=== PATIENT | female | born 1940 | race Two or more races ===

== ENCOUNTER 2024-02-06 13:36 | Outpatient (AMB) | payer MEDICARE, MEDICAID, SELFPAY ==
--- NOTE | 2024-02-06 13:42 | PD.RESCLINIC ---
Allergies/Meds Allergies & Medications Allergies No Known Allergies Allergy (Verified 02/06/24 13:43) Medication Reconciliation dexlansoprazole 60 mg capsule,biphase delayed release 60 mg PO DAILY 06/11/22 [History Confirmed 02/06/24] sertraline 100 mg tablet 100 mg PO DAILY 06/11/22 [History Confirmed 02/06/24] rivastigmine 4.6 mg/24 hour transdermal patch 4.6 mg topical QDAY 08/19/23 [History Confirmed 02/06/24] lisinopril 40 mg tablet 40 mg PO QDAY 1 month #30 tabs 09/03/23 [Rx Confirmed 02/06/24] gabapentin 300 mg capsule 300 mg PO BID neuropathy #60 caps 10/31/23 [Rx Confirmed 02/06/24] ibandronate 150 mg tablet 150 mg PO QMONTH osteoporosis #1 tab 10/31/23 [Rx Confirmed 02/06/24] clotrimazole 1 % topical cream 1 applic topical TID PRN rash in groin #45 grams 01/30/24 [Rx Confirmed 02/06/24] guaifenesin 100 mg/5 mL oral liquid 200 mg (10 mL) PO BIDWMEAL #500 mL 01/30/24 [Rx Confirmed 02/06/24] azithromycin 250 mg tablet See Rx Instructions PO .COMPLEX #6 tabs 02/04/24 [Rx Confirmed 02/06/24] alprazolam 0.5 mg tablet 0.5 mg PO TID Anxiety #90 tabs 03/02/24 [Rx] amlodipine 5 mg tablet 5 mg PO QDAY 1 month #30 tabs 03/02/24 [Rx] furosemide 40 mg tablet 40 mg PO DAILY #30 tabs 03/02/24 [Rx] rivaroxaban 10 mg tablet (Xarelto) 10 mg PO DAILY 30 days #30 tabs 03/02/24 [Rx] MA Intake Visit Data Collection New Patient or Established: Established Patient (seen at [facility] within 3 years) Seen by Clinical Staff ONLY (RN/MA): No Pain Present Currently: No Pain scale:: 0 PCP or OBGYN visit in last 3 months: Yes Smoking Status Smoking Status: Former smoker For Televisit only Telemed Video/Phone Visit: Yes Verbal consent obtained for Telemed visit?: Yes Verbal Consent witness name: ROSE Telemed Video/Phone visit w/Clinical Staff: 21-30 min Immunization / Flu Flu Vaccine in the Last 12 Months: No Flu Vaccine Exclusion Criteria: No Exclusion Criteria Past Medical History Past Medical History NEUROLOGIC: Positive Neurological Disorders and Cerebrovascular Accident (10 years ago); Negative Seizures CARDIAC: Positive Hypertension; Negative Cardiac Disorders, Congestive Heart Failure, Edema, Cellulitis or Varicose Veins RESPIRATORY: Negative Chronic Obstructive Pulmonary Disease (COPD), Asthma, Pneumonia, Tuberculosis or Sleep Apnea GASTROINTESTINAL: Positive Gastrointestinal Disorders and Hemorrhoids; Negative Hepatitis GENITOURINARY: Negative Genitourinary Disorders or Renal Disease REPRODUCTIVE: Positive Breast Cancer and Previous Pregnancies MUSCULOSKELETAL: Positive Arthritis ENDOCRINE: Negative Endocrine Disorders, Diabetes Mellitus Type 1, Diabetes Mellitus Type 2, Hyperthyroidism or Hypothyroidism HEMATOLOGIC: Negative Blood Disorders, Anemia or Sickle Cell Disease PSYCHO/SOCIAL: Positive Depression and Anxiety OTHER HISTORY: Positive Hospitalization, Falls, Cancer (left nipple) and Breast Cancer; Negative Shingles, Blood Transfusions, Anesthesia Reactions, Chemotherapy, Radiation Therapy, MRSA, Chicken Pox, Measles or Mumps Family History FAMILY HISTORY: Positive Family Cardiac Disorders; Negative Family Psychiatric Problems, Family Respiratory Disorders, Family Gastrointestinal Problems, Family Cancer, Family Surgery or Family Anesthesia Reaction Surgical History SURGICAL: Positive Lumpectomy, Hysterectomy and Tubal Ligation; Negative Pacemaker Social History SMOKING STATUS: Smoking status: Former smoker ALCOHOL: Alcohol Intake: Never HOUSING: Housing: House LIVES WITH: Lives With: Family Patient Portal [employer] Social History Living Situation History Housing: House Tobacco History Smoking Status: Former smoker Alcohol History Alcohol Intake: Never Review of Systems Report any current symptoms Only answer those that you have currently: Past Medical History Past Medical History Have you ever been diagnosed with any of the following: Neurological Problems Cerebrovascular Accident (CVA): Yes (10 years ago) Seizures: No Cardiology Problems Congestive Heart Failure: No Edema: No Cellulitis: No Hypertension: Yes Varicose Veins: No Respiratory Problems Chronic Obstructive Pulmonary Disease (COPD): No Asthma: No Pneumonia: No Tuberculosis: No Sleep Apnea: No Stomache/Intestinal Problems Hepatitis: No Hemorrhoids: Yes Genital/Urinary Problems Renal Disease: No Reproductive Problems Breast Cancer: Yes Previous Pregnancies: Yes Musculoskeletal Problems Arthritis: Yes Endocrine Problems Diabetes Mellitus Type 1: No Diabetes Mellitus Type 2: No Hyperthyroidism: No Hypothyroidism: No Blood Problems Anemia: No Sickle Cell Disease: No Psychologic Problems Depression: Yes Anxiety: Yes Other Problems Hospitalization: Yes Shingles: No Falls: Yes Blood Transfusions: No Anesthesia Reactions: No Chemotherapy: No Radiation Therapy: No MRSA: No Chicken Pox: No Measles: No Mumps: No Cancer: Yes (left nipple) Surgical History Hysterectomy: Yes Pacemaker: No History of Present Illness HPI Narrative 83 yo female whoduring last visit stated she had a cough for 7 to 10 days. She reported that she was initially having dry cough, but for past couple days has been associated with productive cough,todays phone appointment is to follow up on Xray results. Patient Xray unremarkable, patient referrs improvement in cough, almost resolved. Assessment & Plan Diagnosis / Problem List (1) Cough in adult patient: Status: Acute Assessment & Plan: 83 yo female whoduring last visit stated she had a cough for 7 to 10 days. She reported that she was initially having dry cough, but for past couple days has been associated with productive cough,todays phone appointment is to follow up on Xray results. Patient Xray unremarkable, patient referrs improvement in cough, almost resolved. Additional Assessment Attending note: I, Daniel Hussein MD, attest that I was physically present for the hernandez portions of the service completed via telehealth, and I reviewed and discussed the case with the resident and agree with the resident's plans of care as documented above. Follow-up appointment completed via telehealth to review x-ray results. Chest x-ray unremarkable. Cough nearly resolved. No further treatment indicated at this time. Daniel Hussein MD Advanced Care Planning Advance care planning discussed with:: other Physician Billing Established Patient Established Patient: E/M Level 2-CPT 90375 Office Procedures [facility] Level of Care Nursing/Assessment Patient Status: Established Patient Nursing Assessment/Reassessment: Medication Reconciliation and Update PMH in EMR Coordination of Care: Complex Care and Chronic Disease 1-5, Education Complex Pt/Fam, Consent,records obtained, informed consent, Results/Orders obtained and Staff clarify orders Established Patient Charge Established Patient Point Assignment: 80 Telehealth Telemed Phone/Video with patient at home & ,[place],LOCKSTITCH LINING MAKER: Yes
== END 2024-02-06 14:46 | disposition home or self-care (01) ==
PROVIDERS: PCP Student in an Organized Health Care Education/Training Program; Referring Provider Student in an Organized Health Care Education/Training Program; Supervising Provider Internal Medicine; Visit Provider Student in an Organized Health Care Education/Training Program
DX: R05.9 Cough, unspecified (principal)
CPT/HCPCS: 99212; G0463

== ENCOUNTER 2024-03-19 13:44 | Outpatient (AMB) | payer MEDICARE, MEDICAID, SELFPAY ==
[2024-03-19 13:57] VITALS: BP 158/72; PULSE 80; RESP 18; TEMP 36.2; O2SAT 98
--- NOTE | 2024-03-19 13:57 | ACNOTE_ITS ---
Vital Signs 03/19/24 13:57 Weight Measurement Method Wheelchair BP 158/72 H Blood Pressure Source Automatic Cuff Blood Pressure Location Right Upper Arm Position Sitting Respiration 18 Pulse 80 Pulse Source Monitor Temp 97.2 F Temp Source Temporal Artery Scan Pulse Oximetry (%) 98 Oxygen Delivery Method Room Air Allergies/Meds Allergies & Medications Allergies No Known Allergies Allergy (Verified 03/19/24 13:58) Medication Reconciliation dexlansoprazole 60 mg capsule,biphase delayed release 60 mg PO DAILY 06/11/22 [History Confirmed 03/19/24] sertraline 100 mg tablet 100 mg PO DAILY 06/11/22 [History Confirmed 03/19/24] rivastigmine 4.6 mg/24 hour transdermal patch 4.6 mg topical QDAY 08/19/23 [History Confirmed 03/19/24] lisinopril 40 mg tablet 40 mg PO QDAY 1 month #30 tabs 09/03/23 [Rx Confirmed 03/19/24] gabapentin 300 mg capsule 300 mg PO BID neuropathy #60 caps 10/31/23 [Rx Confir med 03/19/24] ibandronate 150 mg tablet 150 mg PO QMONTH osteoporosis #1 tab 10/31/23 [Rx Confirmed 03/19/24] clotrimazole 1 % topical cream 1 applic topical TID PRN rash in groin #45 grams 01/30/24 [Rx Confirmed 03/19/24] guaifenesin 100 mg/5 mL oral liquid 200 mg (10 mL) PO BIDWMEAL #500 mL 01/30/24 [Rx Confirmed 03/19/24] azithromycin 250 mg tablet See Rx Instructions PO .COMPLEX #6 tabs 02/04/24 [Rx Confirmed 03/19/24] alprazolam 0.5 mg tablet 0.5 mg PO TID Anxiety #90 tabs 03/02/24 [Rx Confirmed 03/19/24] furosemide 40 mg tablet 40 mg PO DAILY #30 tabs 03/02/24 [Rx Confirmed 03/19/24] rivaroxaban 10 mg tablet (Xarelto) 10 mg PO DAILY 30 days #30 tabs 03/02/24 [Rx Confirmed 03/19/24] albuterol sulfate 90 mcg/actuation aerosol inhaler 1 puff inhalation Q8H PRN shortness of breath or wheezing #8.5 grams 03/19/24 [Rx] amlodipine 10 mg tablet 10 mg PO QDAY 30 days #30 tabs 03/19/24 [Rx] MA Intake Visit Data Collection New Patient or Established: Established Patient (seen at [facility] within 3 years) Seen by Clinical Staff ONLY (RN/MIGUELANGEL): No Pain Present Currently: No Pain Scale Used: Mendez-Holguin/Numerical Washer And Capper Machine Operator Required: Yes PCP or OBGYN visit in last 3 months: No Hx Now: No Do You Feel Safe at Home: Yes Authorities Contacted: N/A Smoking Status Smoking Status: Former smoker Immunization / Flu Flu Vaccine in the Last 12 Months: No Flu Vaccine Exclusion Criteria: No Exclusion Criteria Past Medical History Past Medical History NEUROLOGIC: Positive Neurological Disorders and Cerebrovascular Accident (10 years ago); Negative Seizures CARDIAC: Positive Hypertension; Negative Cardiac Disorders, Congestive Heart Failure, Edema, Cellulitis or Varicose Veins RESPIRATORY: Negative Chronic Obstructive Pulmonary Disease (COPD), Asthma, Pneumonia, Tuberculosis or Sleep Apnea GASTROINTESTINAL: Positive Gastrointestinal Disorders and Hemorrhoids; Negative Hepatitis GENITOURINARY: Negative Genitourinary Disorders or Renal Disease REPRODUCTIVE: Positive Breast Cancer and Previous Pregnancies MUSCULOSKELETAL: Positive Arthritis ENDOCRINE: Negative Endocrine Disorders, Diabetes Mellitus Type 1, Diabetes Mellitus Type 2, Hyperthyroidism or Hypothyroidism HEMATOLOGIC: Negative Blood Disorders, Anemia or Sickle Cell Disease PSYCHO/SOCIAL: Positive Depression and Anxiety OTHER HISTORY: Positive Hospitalization, Falls, Cancer (left nipple) and Breast Cancer; Negative Shingles, Blood Transfusions, Anesthesia Reactions, Chemotherapy, Radiation Therapy, MRSA, Chicken Pox, Measles or Mumps Family History FAMILY HISTORY: Positive Family Cardiac Disorders; Negative Family Psychiatric Problems, Family Respiratory Disorders, Family Gastrointestinal Problems, Family Cancer, Family Surgery or Family Anesthesia Reaction Surgical History SURGICAL: Positive Lumpectomy, Hysterectomy and Tubal Ligation; Negative Pacemaker Social History SMOKING STATUS: Smoking status: Former smoker ALCOHOL: Alcohol Intake: Never HOUSING: Housing: House LIVES WITH: Lives With: Family Patient Portal [employer] Social History Living Situation History Housing: House Tobacco History Smoking Status: Former smoker Alcohol History Alcohol Intake: Never Domestic Abuse History Do You Feel Safe at Home: Yes Review of Systems Report any current symptoms Only answer those that you have currently: Past Medical History Past Medical History Have you ever been diagnosed with any of the following: Neurological Problems Cerebrovascular Accident (CVA): Yes (10 years ago) Seizures: No Cardiology Problems Congestive Heart Failure: No Edema: No Cellulitis: No Hypertension: Yes Varicose Veins: No Respiratory Problems Chronic Obstructive Pulmonary Disease (COPD): No Asthma: No Pneumonia: No Tuberculosis: No Sleep Apnea: No Stomache/Intestinal Problems Hepatitis: No Hemorrhoids: Yes Genital/Urinary Problems Renal Disease: No Reproductive Problems Breast Cancer: Yes Previous Pregnancies: Yes Musculoskeletal Problems Arthritis: Yes Endocrine Problems Diabetes Mellitus Type 1: No Diabetes Mellitus Type 2: No Hyperthyroidism: No Hypothyroidism: No Blood Problems Anemia: No Sickle Cell Disease: No Psychologic Problems Depression: Yes Anxiety: Yes Other Problems Hospitalization: Yes Shingles: No Falls: Yes Blood Transfusions: No Anesthesia Reactions: No Chemotherapy: No Radiation Therapy: No MRSA: No Chicken Pox: No Measles: No Mumps: No Cancer: Yes (left nipple) Surgical History Hysterectomy: Yes Pacemaker: No History of Present Illness HPI Narrative Patient is an 83-year-old female with history of left breast DCIS s/p radiation, lumpectomy, aortic stenosis/hypertension who presents to clinic due to concern for new mass in left breast. Also complains of productive cough with clear mucus, SOB but denies any weight loss, fever, chills, chest pain, discharge from breast, nausea/vomiting/diarrhea/abdominal pain or dysuria. Review of Systems Review of Systems Systems Reviewed: All systems reviewed, normal except as documented Objective/Exam Narrative Physical exam: Gen: AAOx3, elderly female in wheelchair HEENT: NCAT, PERRLA, EOMI, MMM, R cervical LN palpable and tender Breast exam: L nipple absent, no erythema, dimpling or discharge noted; small firm mass ~1cm palpated in outer lower quadrant. Hearings Reporter was present for entire breast exam. CVS: normal S1, S2. RRR. Holosystolic murmur in R 2nd ICS with radiation to carotid Resp: CTA B/L. No rhonchi, rales, crackles or wheezing Abd: soft, non-tender, non-distended. BS+ in all 4 quadrants MSK: Good ROM in RUE, BLE; reduced in L shoulder. No rash. Trace edema in R ankle Neuro: CN II-XII grossly intact. Strength 5/5 RUE, BLE; 3/5 LUE due to shoulder pain Assessment & Plan Diagnosis / Problem List (1) Breast lump in lower-outer quadrant: Status: Acute Assessment & Plan: Approximately 1 cm firm mass in lower outer quadrant of left breast Patient with history of DCIS s/p radiation Plan: Will obtain diagnostic left breast mammogram Will refer back to Dr. Underwood at the [facility] (2) Cough in adult patient: Status: Acute Assessment & Plan: Several sick contacts living at home with patient Complains of productive cough of clear mucus and shortness of breath Patient endorses eating and drinking okay Plan: Appears to be viral infection. Offered COVID, flu, RSV testing Ordered CBC, CMP Will order chest x-ray and albuterol inhaler Recommended OTC Mucinex, acetaminophen, and advised to present to ED if patient's symptoms worsen (3) Hypertension: Status: Acute Qualifiers: Hypertension type: primary hypertension Qualified Code(s): I10 - Ess ential (primary) hypertension Assessment & Plan: Patient is on lisinopril 40, amlodipine 5, Lasix 40 and BP in clinic 158/72 Plan: Due to aortic stenosis, goal BP <140/90 Will increase amlodipine 5 to 10 mg. Discussed with patient and family member adverse effect of worsening lower extremity edema Advised to follow up with cardiology if BP is not controlled (4) Aortic stenosis: Status: Acute Qualifiers: Cardiac valve disease etiology: nonrheumatic Qualified Code(s): I35.0 - Nonrheumatic aortic (valve) stenosis Assessment & Plan: Severe aortic valve stenosis with peak gradient 52 mmHg, mean gradient 29 mmHg, V-max 3.6 m/s, as noted on echo from August 2023 Holosystolic murmur with radiation to carotids appreciated Plan: Increase amlodipine for better blood pressure control Recommend for patient follow-up with cardiology Orders: Orders Comprehensive Metabolic Panel 2 Weeks R05.9 - Cough, unspecified CBC Auto Diff Post-Transfusion 2 Weeks R05.9 - Cough, unspecified XR chest 2V 1 Week R05.9 - Cough, unspecified ORQUIDEA CAD diagnostic UNI 1 Week N63.0 - Unspecified lump in unspecified breast, Z85.3 - Personal history of malignant neoplasm of breast Referrals Oncology N63.0 - Unspecified lump in unspecified breast, Z85.3 - Personal history of malignant neoplasm of breast Additional Assessment Attending note: I, Daniel Hussein MD, attest that I was physically present for the hernandez portions of the service and evaluated the patient with the resident and I reviewed and discussed the case with the resident and agree with the resident's findings and plans of care as documented above. Follow-up visit. New mass in left breast. Patient will be sent for diagnostic mammogram with follow-up with cancer treatment center. Complaining of cough. Suspect viral, but due to complaint of dyspnea, we will check a chest x-ray. Baseline labs ordered. Blood pressure elevated. We will increase amlodipine to 10 mg. Watch for worsening edema. See orders. Daniel Hussein MD Advanced Care Planning Advance care planning discussed with:: patient and child Physician Billing Established Patient Established Patient: E/M Level 3-CPT 17645 Office Procedures [facility] Level of Care Nursing/Assessment Patient Status: Established Patient Nursing Assessment/Reassessment: Medication Reconciliation, Update PMH in EMR and Vital Signs Coordination of Care: Complex Care and Chronic Disease 1-5, Consent,records obtained, informed consent, Education Simp Pt/Fam, Lab and Imaging orders and Staff clarify orders Established Patient Charge Established Patient Point Assignment: 100 Established Patient Point Charge: EP Level 3 (80-115)
== END 2024-03-19 14:53 | disposition home or self-care (01) ==
LOC: HODAHC 13:44
PROVIDERS: PCP Student in an Organized Health Care Education/Training Program; Referring Provider Student in an Organized Health Care Education/Training Program; Supervising Provider Internal Medicine; Visit Provider Student in an Organized Health Care Education/Training Program
DX: N63.23 Unspecified lump in the left breast, lower outer quadrant (principal); B34.9 Viral infection, unspecified; Z86.000 Personal history of in-situ neoplasm of breast; Z90.12 Acquired absence of left breast and nipple; Z92.3 Personal history of irradiation; I35.0 Nonrheumatic aortic (valve) stenosis
CPT/HCPCS: 99213; G0463

== ENCOUNTER → 2024-03-20 | Outpatient (CLI) | payer MEDICARE, MEDICAID, SELFPAY ==
--- NOTE | 2024-03-20 14:51 | XR_ITS ---
Examination: AP lateral chest 2 views TECHNIQUE: Upright AP lateral chest 2 views Exam date and time: March 20, 2024 1502 hours INDICATIONS: Congestion beginning 2 days ago. FINDINGS: Subtle opacity in the left upper lobe Mild prominence left ventricle The film is rotated LPO Severe osteopenia Left axillary surgical clips IMPRESSION: Parenchymal disease left upper lobe, consider early pneumonia versus parenchymal scar formation, clinical correlation advised
[2024-03-20 15:46] LABS: Basophils % (Auto) 1 % (0-2.5); Eosinophils # (Auto) 0.2 Thou/mm3 (0.0-0.5); Eosinophils % (Auto) 4 % (0-10); Hematocrit 36.6 % (36.0-46.0); Hemoglobin 11.7 g/dL (12.0-16.0); Immature Granulocytes % (Auto) 0 % (0-0); Immature Granulocytes Auto 0.02 Thou/mm3 (0.00-0.00); Lymphocytes # (Auto) 1.3 Thou/mm3 (1.0-4.8); Lymphocytes % (Auto) 24 % (10-50); Mean Corpuscular Volume 91 fL (80-100); Monocytes # (Auto) 0.4 Thou/mm3 (0.0-0.8); Monocytes % (Auto) 8 % (0-12); Neutrophils # (Auto) 3.4 Thou/mm3 (1.8-7.7); Neutrophils % (Auto) 63 % (37-80); Nucleated Red Blood Cell % 0 /100 WBC (0); Platelet Count 131 Thou/mm3 (140-440); RDW Standard Deviation 47.8 fL (36.4-46.3); Red Blood Count 4.03 Miln/mm3 (4.00-5.20); White Blood Count 5.4 Thou/mm3 (3.6-11.0)
[2024-03-20 16:43] LABS: Alanine Aminotransferase 12 U/L (10-49); Albumin, Serum 4.5 gm/dL (3.4-4.8); Alkaline Phosphatase 102 U/L (46-116); Anion Gap 11 (7-16); Aspartate Amino Transferase 10 U/L (0-34); BUN/Creatinine Ratio 18 Ratio (12-20); Bilirubin,Total 0.8 mg/dL (0.3-1.2); Blood Urea Nitrogen 20 mg/dL (9-23); Calcium 9.5 mg/dL (8.3-10.6); Calcium (Corrected) 9.5 mg/dL (8.5-10.1); Carbon Dioxide 28.6 mMol/L (20.0-31.0); Chloride 103 mMol/L (98-107); Creatinine (Component) 1.1 mg/dL (0.6-1.3); Globulin 2.2 gm/dL (2.3-3.5); Glucose 97 mg/dL (74-106); Osmolality,Calculated 287 (275-295); Potassium 3.2 mMol/L (3.4-5.1); Sodium 143 mMol/L (136-145); Total Protein 6.7 gm/dL (5.7-8.2); eGFR 50 See Note
== END | disposition home or self-care (01) ==
PROVIDERS: PCP Student in an Organized Health Care Education/Training Program; Referring Provider Student in an Organized Health Care Education/Training Program; Visit Provider Student in an Organized Health Care Education/Training Program
DX: R91.8 Other nonspecific abnormal finding of lung field (principal); R05.9 Cough, unspecified
CPT/HCPCS: 36415; 71046; 80053; 85025

== ENCOUNTER 2024-03-26 13:53 | Outpatient (AMB) | payer MEDICARE, MEDICAID, SELFPAY ==
[2024-03-26 13:51] VITALS: BP 152/83; PULSE 70; RESP 18; TEMP 36.2; O2SAT 97
--- NOTE | 2024-03-26 13:51 | PD.RESCLINIC ---
Vital Signs 03/26/24 13:51 Weight Measurement Method Wheelchair BP 152/83 H Blood Pressure Source Automatic Cuff Blood Pressure Location Right Upper Arm Position Sitting Respiration 18 Pulse 70 Pulse Source Monitor Temp 97.2 F Temp Source Oral Pulse Oximetry (%) 97 Oxygen Delivery Method Room Air Allergies/Meds Allergies & Medications Allergies No Known Allergies Allergy (Verified 03/26/24 13:51) Medication Reconciliation dexlansoprazole 60 mg capsule,biphase delayed release 60 mg PO DAILY 06/11/22 [History Confirmed 03/26/24] sertraline 100 mg tablet 100 mg PO DAILY 06/11/22 [History Confirmed 03/26/24] rivastigmine 4.6 mg/24 hour transdermal patch 4.6 mg topical QDAY 08/19/23 [History Confirmed 03/26/24] lisinopril 40 mg tablet 40 mg PO QDAY 1 month #30 tabs 09/03/23 [Rx Confirmed 03/26/24] ibandronate 150 mg tablet 150 mg PO QMONTH osteoporosis #1 tab 10/31/23 [Rx Confirmed 03/26/24] clotrimazole 1 % topical cream 1 applic topical TID PRN rash in groin #45 grams 01/30/24 [Rx Confirmed 03/26/24] guaifenesin 100 mg/5 mL oral liquid 200 mg (10 mL) PO BIDWMEAL #500 mL 01/30/24 [Rx Confirmed 03/26/24] azithromycin 250 mg tablet See Rx Instructions PO .COMPLEX #6 tabs 02/04/24 [Rx Confirmed 03/26/24] furosemide 40 mg tablet 40 mg PO DAILY #30 tabs 03/02/24 [Rx Confirmed 03/26/24] albuterol sulfate 90 mcg/actuation aerosol inhaler 1 puff inhalation Q8H PRN shortness of breath or wheezing #8.5 grams 03/19/24 [Rx Confirmed 03/26/24] amlodipine 10 mg tablet 10 mg PO QDAY 30 days #30 tabs 03/19/24 [Rx Confirmed 03/26/24] alprazolam 0.5 mg tablet 0.5 mg PO TID Anxiety #90 tabs 03/26/24 [Rx] amoxicillin 875 mg-potassium clavulanate 125 mg tablet 1 tab PO Q12H 7 days #14 tabs 03/26/24 [Rx] gabapentin 300 mg capsule 300 mg PO BID neuropathy #60 caps 03/26/24 [Rx] guaifenesin 100 mg/5 mL oral liquid 200 mg (10 mL) PO Q6H PRN productive cough 7 days #1,000 mL 03/26/24 [Rx] rivaroxaban 10 mg tablet (Xarelto) 10 mg PO DAILY 30 days #30 tabs 03/26/24 [Rx] MIGUELANGEL Intake Visit Data Collection New Patient or Established: Established Patient (seen at [facility] within 3 years) Seen by Clinical Staff ONLY (RN/MA): No Pain Present Currently: No Pain Scale Used: Mendez-Holguin/Numerical Dry Charge Process Attendant Required: No PCP or OBGYN visit in last 3 months: Yes Hx Now: No Do You Feel Safe at Home: Yes Authorities Contacted: N/A Smoking Status Smoking Status: Former smoker Immunization / Flu Flu Vaccine in the Last 12 Months: No Flu Vaccine Exclusion Criteria: No Exclusion Criteria Past Medical History Past Medical History NEUROLOGIC: Positive Neurological Disorders and Cerebrovascular Accident (10 years ago); Negative Seizures CARDIAC: Positive Hypertension; Negative Cardiac Disorders, Congestive Heart Failure, Edema, Cellulitis or Varicose Veins RESPIRATORY: Negative Chronic Obstructive Pulmonary Disease (COPD), Asthma, Pneumonia, Tuberculosis or Sleep Apnea GASTROINTESTINAL: Positive Gastrointestinal Disorders and Hemorrhoids; Negative Hepatitis GENITOURINARY: Negative Genitourinary Disorders or Renal Disease REPRODUCTIVE: Positive Breast Cancer and Previous Pregnancies MUSCULOSKELETAL: Positive Arthritis ENDOCRINE: Negative Endocrine Disorders, Diabetes Mellitus Type 1, Diabetes Mellitus Type 2, Hyperthyroidism or Hypothyroidism HEMATOLOGIC: Negative Blood Disorders, Anemia or Sickle Cell Disease PSYCHO/SOCIAL: Positive Depression and Anxiety OTHER HISTORY: Positive Hospitalization, Falls, Cancer (left nipple) and Breast Cancer; Negative Shingles, Blood Transfusions, Anesthesia Reactions, Chemotherapy, Radiation Therapy, MRSA, Chicken Pox, Measles or Mumps Family History FAMILY HISTORY: Positive Family Cardiac Disorders; Negative Family Psychiatric Problems, Family Respiratory Disorders, Family Gastrointestinal Problems, Family Cancer, Family Surgery or Family Anesthesia Reaction Surgical History SURGICAL: Positive Lumpectomy, Hysterectomy and Tubal Ligation; Negative Pacemaker Social History SMOKING STATUS: Smoking status: Former smoker ALCOHOL: Alcohol Intake: Never HOUSING: Housing: House LIVES WITH: Lives With: Family Patient [facility] Social History Living Situation History Housing: House Tobacco History Smoking Status: Former smoker Alcohol History Alcohol Intake: Never Domestic Abuse History Do You Feel Safe at Home: Yes Review of Systems Report any current symptoms Only answer those that you have currently: Past Medical History Past Medical History Have you ever been diagnosed with any of the following: Neurological Problems Cerebrovascular Accident (CVA): Yes (10 years ago) Seizures: No Cardiology Problems Congestive Heart Failure: No Edema: No Cellulitis: No Hypertension: Yes Varicose Veins: No Respiratory Problems Chronic Obstructive Pulmonary Disease (COPD): No Asthma: No Pneumonia: No Tuberculosis: No Sleep Apnea: No Stomache/Intestinal Problems Hepatitis: No Hemorrhoids: Yes Genital/Urinary Problems Renal Disease: No Reproductive Problems Breast Cancer: Yes Previous Pregnancies: Yes Musculoskeletal Problems Arthritis: Yes Endocrine Problems Diabetes Mellitus Type 1: No Diabetes Mellitus Type 2: No Hyperthyroidism: No Hypothyroidism: No Blood Problems Anemia: No Sickle Cell Disease: No Psychologic Problems Depression: Yes Anxiety: Yes Other Problems Hospitalization: Yes Shingles: No Falls: Yes Blood Transfusions: No Anesthesia Reactions: No Chemotherapy: No Radiation Therapy: No MRSA: No Chicken Pox: No Measles: No Mumps: No Cancer: Yes (left nipple) Surgical History Hysterectomy: Yes Pacemaker: No History of Present Illness HPI Narrative 83 yo female who was seen 1 weeks ago due to cough and nasal congestion. Per antione hackett all family was sick with cough and congestion, family recovered, however she still has productive cough and weakness, chest x ray done last week shows early pnuemonia, we will prescribe 1 week antibiotic Augmentin. Mamogram ordered due to new lump found on breast scheduled for Apr 20 we will see patient on may 03 with results. Objective/Exam Narrative Physical exam: GENERAL: Awake, alert and oriented. No acute distress. Coughing HEENT: Normocephalic, atraumatic and nontender.? NECK: Supple without adenopathy. No JVD.? CHEST: Heart rate and rythm normal, no murmurs, gallops auscultated. S1 & 2 normal insensity. LUNGS: Right sided faint wheezing, left lung sounds clear.? No intercostal subcostal retraction. Room air ABDOMEN: Soft,symmetric , nontender, no guarding or rebound tenderness. No abnormal masses palpated.? No pulsatile masses or bruits.? Bowel sounds are normoactive in all 4 quadrants. EXTREMITIES: Nontender.? No pitting edema.? No cyanosis.? Patient is able to move all 4 extremities. SKIN: No rashes noted. NEURO:? Cranial nerves intact.? There is no focalization.? GCS is 15. Assessment & Plan Diagnosis / Problem List (1) Community acquired bacterial pneumonia: Status: Acute Assessment & Plan: 83 yo female who was seen 1 weeks ago due to cough and nasal congestion. Per antione hackett all family was sick with cough and congestion, family recovered, however she still has productive cough and weakness, chest x ray done last week shows early pnuemonia, we will prescribe 1 week antibiotic Augmentin. Mamogram ordered due to new lump found on breast scheduled for Apr 20 we will see patient on may 03 with results. Patient's care discussed with attending physician, Dr Keenan Capellan MD PGY3 Plan: augmentn 1 week Advanced Care Planning Advance care planning discussed with:: patient Office Procedures [facility] Level of Care Nursing/Assessment Patient Status: Established Patient Nursing Assessment/Reassessment: Medication Reconciliation, Update PMH in EMR and Vital Signs Coordination of Care: Complex Care and Chronic Disease 1-5, Consent,records obtained, informed consent, Education Simp Pt/Fam, Results/Orders obtained and Staff clarify orders Established Patient Charge Established Patient Point Assignment: 90 Established Patient Point Charge: EP Level 3 (80-115)
== END 2024-03-26 14:19 | disposition home or self-care (01) ==
LOC: HODAHC 13:53
PROVIDERS: PCP Student in an Organized Health Care Education/Training Program; Referring Provider Student in an Organized Health Care Education/Training Program; Supervising Provider Internal Medicine; Visit Provider Student in an Organized Health Care Education/Training Program
DX: J18.9 Pneumonia, unspecified organism (principal)
CPT/HCPCS: 99213; G0463

== ENCOUNTER 2024-04-11 13:59 | Emergency (ER) | payer MEDICARE, MEDICAID, SELFPAY ==
[2024-04-11 14:00] VITALS: BMI 31.2
[2024-04-11 14:59] VITALS: BP 153/75; PULSE 80; RESP 18; TEMP 36.8; O2SAT 95
--- NOTE | 2024-04-11 15:05 | EDNOTE_ITS ---
ED General RME/HPI General Chief complaint: General Adult/Misc Complain Stated complaint: NEEDS PRESCRIPTION FOR XANAX Time Seen by Provider: 04/11/24 14:34 Source: patient and family Arrival date/time: 04/11/24 13:59 This is an 83-year-old female who presents to the emergency department accompanied with son patient reports she normally takes a Xanax medication however ran out. Patient requesting a refill on medication. She does report she has a follow-up appointment with her PCP on Saturday and will receive her refill medications on that day. However reports she will not have any medications for the remainder of the weekend. Denies any other concerns Mode of arrival: wheelchair Related Data Home Medications ?Medication ?Instructions ?Recorded ?Confirmed sertraline 100 mg tablet 100 mg PO DAILY 06/11/2212/10 rivastigmine 4.6 mg/24 hour 4.6 mg topical QDAY 03/26/24 transdermal patch Previous Rx's ?Medication ?Instructions ?Recorded lisinopril 40 mg tablet 40 mg PO QDAY 1 month #30 ta bs 09/03/23 ibandronate 150 mg tablet 150 mg PO QMONTH osteoporosi s #1 10/31/23 tab clotrimazole 1 % topical cream 1 applic topical TID NJ N rash in 01/30/24 groin #45 grams guaifenesin 100 mg/5 mL oral liquid 200 mg (10 mL) PO BIDWMEAL #500 mL 01/30/24 azithromycin 250 mg tablet See Rx Instructions PO .COM PLEX #6 02/04/24 tabs furosemide 40 mg tablet 40 mg PO DAILY #30 tabs 02/15 09/08 albuterol sulfate 90 mcg/actuation 1 puff inhalation Q 8H PRN 03/19/24 aerosol inhaler shortness of breath or wheez ing #8.5 grams amlodipine 10 mg tablet 10 mg PO QDAY 30 days #30 ta bs 03/19/24 gabapentin 300 mg capsule 300 mg PO BID neuropathy #60 caps 03/26/24 clonazepam 0.5 mg tablet 0.5 mg PO QDAY PRN anxiety # 4 tabs 04/11/24 alprazolam 0.5 mg tablet 0.5 mg PO TID Anxiety #90 ta bs 04/13/24 dexlansoprazole 60 mg 60 mg PO DAILY 30 days #30 c aps 04/13/24 capsule,biphase delayed release rivaroxaban 10 mg tablet (Xarelto) 10 mg PO DAILY 30 d ays #30 tabs 04/13/24 Allergies Allergy/AdvReac Type Severity Reaction Status Date / Time No Known Allergies Allergy Verified 04/11/24 14:01 Review of Systems Review of Systems Systems Reviewed: All systems reviewed, normal except as documented Narrative Review of Systems: Gen: No fever, no chills, no weight loss EYES: No discharge, no visual changes, no pain HEENT: No ear pain, no congestion, no sore throat PULM: No shortness of breath, no cough, no congestion CV: No chest pain, no dyspnea on exertion, no palpitations GI: No nausea, no vomiting, no diarrhea, no pain, no constipation : No frequency, no urgency,? no dysuria Musc/skel: No joint pain, no back pain Skin: No rash? ED Exam Narrative Physical exam: General: Sittiing in Exam table in no acute distress, answering questions appropriately HENT: normocephalic, atraumatic, EOMI, PERRLA, moist mucous membranes Chest: chest wall is nontender Cardiac: regular rate and rhythm, normal S1 and S2, no murmurs, rubs, or g allops, capillary refill ?2 seconds Pulmonary: clear to auscultation bilaterally, no wheezing, crackles, or rhonchi Abdominal: active bowel sounds, soft, nontender, nondistended Neuro: A&OX3, CN II-XII intact, sensation grossly intact bilaterally in UE and LE. Skin: no rashes, no ecchymosis Ext: no lower extremity edema Course Quality Measures none Vital Signs Vital signs: Vital Signs Temperature 98.3 F 04/11/24 14:59 Pulse Rate 80 04/11/24 14:59 Respiratory Rate 18 04/11/24 14:59 Blood Pressure 153/75 H 04/11/24 14:59 Pulse Oximetry (%) 95 04/11/24 14:59 Oxygen Delivery Method Room Air 04/11/24 14:59 [facility] Patient data External records reviewed:: [facility] previous records Clinical information provided by:: patient Social determinants that could affect healthcare access:: none Patient has the following chronic illnesses:: none How is presenting disease/condition affected by chronic disease/condition?: no chronic disease Evaluation data The following diagnostics were reviewed and interpreted by me:: other (specify) Lab and/or radiology exams considered but not ordered:: none Interpretation Summary: none Medications Medications considered but not ordered:: none Medication administrations:: none Consultations Consultation(s) initiated? (list below): No Diagnosis Differential Diagnosis ED Complaint MDM: Anxiety Most likely diagnosis given after review of the tests above:: Prescription Refill Admission Indicated Admission indicated?: not indicated Explain why admission is indicated or not indicated:: none -patient can follow-up with her PCP. Only 4 tabs of medication was prescribed. Patient is to follow-up with her PCP for refills courtesy refill was done today. Admission Request Was there a request for admission?: No Disposition Plan Disposition Plan: Discharge Discharge Attestation Discharge Attestation: The patient and all family members were given an opportunity to ask questions and understood the discharge instructions. Discharge instructions specifically effects, indications for sooner follow up or return to the emergency department, and the expected course of current diagnosis. Patient condition: Stable Medical Decision Making Differential Diagnosis Differential Diagnosis: Anxiety Discharge Plan Plan Patient Disposition: HOME (Self Care) Prescriptions/Referrals Prescriptions/Med Rec: New clonazepam 0.5 mg tablet 0.5 mg PO QDAY PRN (Reason: anxiety) Qty: 4 0RF No Action lisinopril 40 mg tablet 40 mg PO QDAY 30 Days Qty: 30 3RF guaifenesin 100 mg/5 mL liquid 200 mg PO BIDWMEAL Qty: 500 0RF clotrimazole 1 % cream 1 applic topical TID PRN (Reason: rash in groin) Qty: 45 5RF azithromycin 250 mg tablet See Rx Instructions PO .COMPLEX Qty: 6 0RF Rx Instructions: For 250 mg dose pack: take 500 mg today (day 1), then 250 mg for 4 days (days 2-5) PO amlodipine 10 mg tablet 10 mg PO QDAY 30 Days Qty: 30 3RF albuterol sulfate 90 mcg/actuation HFA aerosol inhaler 1 puff inhalation Q8H PRN (Reason: shortness of breath or wheezing) Qty: 8.5 0RF ibandronate 150 mg tablet 150 mg PO QMONTH Qty: 1 5RF gabapentin 300 mg capsule 300 mg PO BID MDD 600 mg Qty: 60 2RF furosemide 40 mg tablet 40 mg PO DAILY Qty: 30 0RF Xarelto 10 mg tablet 10 mg PO DAILY 30 Days Qty: 30 3RF dexlansoprazole 60 mg capsule,biphase delayed releas 60 mg PO DAILY 30 Days Qty: 30 3RF alprazolam 0.5 mg tablet 0.5 mg PO TID MDD 1.5 mg Qty: 90 0RF rivastigmine 4.6 mg/24 hour patch 24 hour 4.6 mg TOPICAL QDAY sertraline 100 mg tablet 100 mg PO DAILY Patient Comments: take 1 tablet by mouth once daily Problem List Clinical Impression: Anxiety, Prescription refill Patient/Caregiver Discharge Instructions Discharge Activity: activity as tolerated Education Materials: Anxiety Disorders Tx Therapy Additional Instructions: It is very important that you do not run out of your medication. I did send you only 4 tablets that is enough until you see your doctor on Saturday. Return to the emergency department is any worsening symptoms change in condition. Print Language: Beninese Stand Alone Forms: Reema Award Info., Patient Portal Info Letter MARIAM/MIRIAM Supervising Physician MARIAM/MIRIAM Supervising Physician: va
== END 2024-04-11 15:17 | disposition home or self-care (01) ==
LOC: SERX 15:27
PROVIDERS: Emergency Provider Emergency Medicine
DX: Z76.0 Encounter for issue of repeat prescription (principal); F41.9 Anxiety disorder, unspecified; Z79.899 Other long term (current) drug therapy
CPT/HCPCS: 99281

== ENCOUNTER → 2024-04-20 | Outpatient (CLI) | payer MEDICARE, MEDICAID, SELFPAY ==
--- NOTE | 2024-04-20 | XR_ITS ---
Examination: Diagnostic digital mammography, bilateral Computer aided detection 3-D breast Tomosynthesis, bilateral Date and time of exam: April 20, 2024 1510 hours INDICATIONS: Palpable lump left breast note is beginning one month ago Technique: Nonmagnified MLO, CC views of the breasts to been obtained, reconstructed from 3-D Tomosynthesis images. R2 computer aided detection program utilized for evaluation of suspicious masses and/or abnormal calcifications. 3-D Tomosynthesis images obtained. Findings: Comparison to mammograms dating to March 27, 2017 Scattered areas of fibroglandular density. Benign calcifications Limited study as the patient is in a wheelchair No suspicious masses IMPRESSION: BI-RADS Category 0: Incomplete: Need additional imaging evaluation Limited study as the patient is in a wheelchair Recommend bilateral breast sonography follow-up
== END | disposition home or self-care (01) ==
PROVIDERS: Referring Provider Student in an Organized Health Care Education/Training Program; Visit Provider Student in an Organized Health Care Education/Training Program
DX: R92.8 Other abnormal and inconclusive findings on diagnostic imaging of breast (principal); C50.912 Malignant neoplasm of unspecified site of left female breast
CPT/HCPCS: 77062; 77066; G0279

== ENCOUNTER 2024-04-28 11:01 | Outpatient (RCR) | payer MEDICARE, MEDICAID, SELFPAY ==
--- NOTE | 2024-04-28 12:10 | CTCCONSULT_ITS ---
[facility] [address] [place], [place] [address] Consultation Note Date: 04/28/2024 MR#: [id number] Name: NETO DENTON : 1940 Dx: C50.112 Malignant neoplasm of central portion of left female breast Attending physician Edmund Davila MD [facility] Reason for consultation. Patient with history of stage II aT2a left breast CA status post partial mastectomy postop radiation hormone manipulation, referred because of a palpable lump. History of Present Illness: Patient is a 84-year-old lady who was initially seen over 4 years ago when she had stage II aT2 N0 left breast CA. 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 Radiation therapy was prescribed completed March 2020. Patient was prescribed postop estrogen modulators by Dr. Prashant Dang but appears to not be on it for the time being. Patient had a palpable mass in the lower outer quadrant of left breast on 04/20/2024 and it was BI-RADS 0 and sonogram was recommended. Patient now referred to the cancer treatment center. 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 None to meds Social History: Wheelchair-bound secondary CVA being cared for by family. Denies smoking drinking has experienced depression Review of Systems patient currently: Physical Exam: Well-appearing lady in wheelchair General: HEENT: Atraumatic no cephalic extraocular is intact no oral lesion no cervical or supraclavicular adenopathy CV: Left breast with palpable mass in the lower outer quadrant approximately 4:00. No other suspicious masses felt in either breasts. ABD: Soft no organomegaly or tenderness EXT: No signs of clubbing or edema Assessment:1. History of stage II aT2 N0 left breast CA status post partial mastectomy postop radiation postop estrogen modulators. 2. Possible recurrence lower outer quadrant left breast, will check sonogram in addition to the just completed mammogram. 3. I gave patient follow-up for 2 months. Cc: Edmund Davila MD [facility] Electronically signed by: Chiki Underwood MD, DABR 04/28/2024 12:07 PM
== END 2024-05-15 23:59 | disposition home or self-care (01) ==
LOC: SCTC 11:01
PROVIDERS: PCP Student in an Organized Health Care Education/Training Program; Referring Provider Student in an Organized Health Care Education/Training Program; Visit Provider Radiology Therapeutic Radiology
DX: N63.23 Unspecified lump in the left breast, lower outer quadrant (principal); Z85.3 Personal history of malignant neoplasm of breast; Z90.12 Acquired absence of left breast and nipple; Z92.3 Personal history of irradiation
CPT/HCPCS: 99213; G0463

== ENCOUNTER 2024-04-30 13:37 | Outpatient (AMB) | payer MEDICARE, MEDICAID, SELFPAY ==
[2024-04-30 13:46] VITALS: BP 134/72; PULSE 64; RESP 17; TEMP 36; O2SAT 96
--- NOTE | 2024-04-30 13:46 | ACNOTE_ITS ---
Vital Signs 04/30/24 13:46 Height 1.52 m Height Method Stated Weight Measurement Method Standing Scale BP 134/72 H Blood Pressure Source Automatic Cuff Blood Pressure Location Left Upper Arm Position Sitting Respiration 17 Pulse 64 Pulse Source Monitor Temp 96.8 F Temp Source Temporal Artery Scan Pulse Oximetry (%) 96 Oxygen Delivery Method Room Air Allergies/Meds Allergies & Medications Allergies No Known Allergies Allergy (Verified 04/30/24 13:50) Medication Reconciliation sertraline 100 mg tablet 100 mg PO DAILY 06/11/22 [History Confirmed 04/30/24] rivastigmine 4.6 mg/24 hour transdermal patch 4.6 mg topical QDAY 08/19/23 [History Confirmed 04/30/24] lisinopril 40 mg tablet 40 mg PO QDAY 1 month #30 tabs 09/03/23 [Rx Confirmed 04/30/24] ibandronate 150 mg tablet 150 mg PO QMONTH osteoporosis #1 tab 10/31/23 [Rx Confirmed 04/30/24] clotrimazole 1 % topical cream 1 applic topical TID PRN rash in groin #45 grams 01/30/24 [Rx Confirmed 04/30/24] guaifenesin 100 mg/5 mL oral liquid 200 mg (10 mL) PO BIDWMEAL #500 mL 01/30/24 [Rx Confirmed 04/30/24] azithromycin 250 mg tablet See Rx Instructions PO .COMPLEX #6 tabs 02/04/24 [Rx Confirmed 04/30/24] albuterol sulfate 90 mcg/actuation aerosol inhaler 1 puff inhalation Q8H PRN sh ortness of breath or wheezing #8.5 grams 03/19/24 [Rx Confirmed 04/30/24] amlodipine 10 mg tablet 10 mg PO QDAY 30 days #30 tabs 03/19/24 [Rx Confirmed 04/30/24] gabapentin 300 mg capsule 300 mg PO BID neuropathy #60 caps 03/26/24 [Rx Confirmed 04/30/24] clonazepam 0.5 mg tablet 0.5 mg PO QDAY PRN anxiety #4 tabs 04/11/24 [Rx Confirmed 04/30/24] alprazolam 0.5 mg tablet 0.5 mg PO TID Anxiety #90 tabs 04/30/24 [Rx] cetirizine 10 mg tablet (Zyrtec) 10 mg PO QDAY PRN allergy symptoms #30 tabs 04/30/24 [Rx] dexlansoprazole 60 mg capsule,biphase delayed release 60 mg PO DAILY 30 days #30 caps 04/30/24 [Rx] furosemide 40 mg tablet 40 mg PO DAILY #30 tabs 04/30/24 [Rx] lidocaine 5 % topical cream 1 applic topical TID PRN pain #15 grams 04/30/24 [Rx] rivaroxaban 10 mg tablet (Xarelto) 10 mg PO DAILY 30 days #30 tabs 04/30/24 [Rx] MA Intake Visit Data Collection New Patient or Established: Established Patient (seen at [facility] within 3 years) Seen by Clinical Staff ONLY (RN/MA): No Pain Present Currently: No Pain scale:: 0 Pain Scale Used: Mendez-Holguin/Numerical Commercial Banker Required: No PCP or OBGYN visit in last 3 months: Yes Hx Now: No Do You Feel Safe at Home: Yes Authorities Contacted: N/A Smoking Status Smoking Status: Never smoker Immunization / Flu Flu Vaccine in the Last 12 Months: No Flu Vaccine Exclusion Criteria: No Exclusion Criteria Past Medical History Past Medical History NEUROLOGIC: Positive Neurological Disorders and Cerebrovascular Accident (10 years ago); Negative Seizures CARDIAC: Positive Hypertension; Negative Cardiac Disorders, Congestive Heart Failure, Edema, Cellulitis or Varicose Veins RESPIRATORY: Negative Chronic Obstructive Pulmonary Disease (COPD), Asthma, Pneumonia, Tuberculosis or Sleep Apnea GASTROINTESTINAL: Positive Gastrointestinal Disorders and Hemorrhoids; Negative Hepatitis GENITOURINARY: Negative Genitourinary Disorders or Renal Disease REPRODUCTIVE: Positive Breast Cancer and Previous Pregnancies MUSCULOSKELETAL: Positive Arthritis ENDOCRINE: Negative Endocrine Disorders, Diabetes Mellitus Type 1, Diabetes Mellitus Type 2, Hyperthyroidism or Hypothyroidism HEMATOLOGIC: Negative Blood Disorders, Anemia or Sickle Cell Disease PSYCHO/SOCIAL: Positive Depression and Anxiety OTHER HISTORY: Positive Hospitalization, Falls, Cancer (left nipple) and Breast Cancer; Negative Shingles, Blood Transfusions, Anesthesia Reactions, Chemotherapy, Radiation Therapy, MRSA, Chicken Pox, Measles or Mumps Family History FAMILY HISTORY: Positive Family Cardiac Disorders; Negative Family Psychiatric Problems, Family Respiratory Disorders, Family Gastrointestinal Problems, Family Cancer, Family Surgery or Family Anesthesia Reaction Surgical History SURGICAL: Positive Lumpectomy, Hysterectomy and Tubal Ligation; Negative Pacemaker Social History SMOKING STATUS: Smoking status: Never smoker ALCOHOL: Alcohol Intake: Never HOUSING: Housing: House LIVES WITH: Lives With: Family Patient Portal Questionaires Social History Living Situation History Housing: House Tobacco History Smoking Status: Never smoker Alcohol History Alcohol Intake: Never Domestic Abuse History Do You Feel Safe at Home: Yes Review of Systems Report any current symptoms Only answer those that you have currently: Past Medical History Past Medical History Have you ever been diagnosed with any of the following: Neurological Problems Cerebrovascular Accident (CVA): Yes (10 years ago) Seizures: No Cardiology Problems Congestive Heart Failure: No Edema: No Cellulitis: No Hypertension: Yes Varicose Veins: No Respiratory Problems Chronic Obstructive Pulmonary Disease (COPD): No Asthma: No Pneumonia: No Tuberculosis: No Sleep Apnea: No Stomache/Intestinal Problems Hepatitis: No Hemorrhoids: Yes Genital/Urinary Problems Renal Disease: No Reproductive Problems Breast Cancer: Yes Previous Pregnancies: Yes Musculoskeletal Problems Arthritis: Yes Endocrine Problems Diabetes Mellitus Type 1: No Diabetes Mellitus Type 2: No Hyperthyroidism: No Hypothyroidism: No Blood Problems Anemia: No Sickle Cell Disease: No Psychologic Problems Depression: Yes Anxiety: Yes Other Problems Hospitalization: Yes Shingles: No Falls: Yes Blood Transfusions: No Anesthesia Reactions: No Chemotherapy: No Radiation Therapy: No MRSA: No Chicken Pox: No Measles: No Mumps: No Cancer: Yes (left nipple) Surgical History Hysterectomy: Yes Pacemaker: No History of Present Illness HPI Narrative Patient is a 84 years old female was brought by her granddaughter for follow up. She reports ongoing chronic cough which got slightly worse recently. She report no sick contacts or recent travel. She denies any fever, chills, chest pain, SOB, or generally feeling sick. Her cough is the same in nature as before. She also reported wattering of both eyes with occasional minimal swelling. She denies any pus, pain or worsening vision. She had consultation with Dr. Underwood for breast cancer and was scheduled for breast US. She requested refil of her Xarelto, Xanax, dexlansoprozole and Lasix. Review of Systems Review of Systems Systems Reviewed: All systems reviewed, normal except as documented Objective/Exam Narrative Physical exam: Gen: Well-developed and well-nourished elderly female. HEENT: NCAT, PERRLA, EOMI, MMM, anicteric conjunctivae. CVS: normal S1 and S2. Systolic murmur over mitral area. No M/R/G. Resp: CTA B/L. No rhonchi, rales, crackles or wheezing. Abd: soft, non-tender, non-distended. BS+ in all 4 quadrants. MSK: Good ROM in BUE & BLE. No edema or rash. Neuro: CN II-XII grossly intact. Strength 5/5 in BUE & BLE. Alert and oriented x3. Psych: appropriate mood and affect. Assessment & Plan Diagnosis / Problem List (1) Cough in adult patient: Status: Acute Assessment & Plan: Patient was recently treated with Augmentin for CAP, her symptoms significantly improved, however her cough has failed to improve, today she reported cough got slightly worse and also reported irritation of her eyes, likely allergic origin. Lungs are clear on physical exam. No hx of fever, chills, SOB, chest pain. Plan: Trial of Cetirizine 1 tab daily. Continue PPI. (2) Irritation of eye: Status: Acute Assessment & Plan: Recently srated having excessive wattering of her eyes with occasional minimal swelling. Plan: Trial of Cetirizine 1 tab daily. (3) Hypertension: Status: Acute Qualifiers: Hypertension type: primary hypertension Qualified Code(s): I10 - Essential (primary) hypertension Plan: Refilled Lasix. (4) Peripheral neuropathy: Status: Acute Assessment & Plan: Patient reported worsening of pain in right heel, asked for any topical treatment. Plan: Lidocaine cream TID PRN. Continue gabapentin. (5) Anxiety: Status: Acute Plan: Xanax refilled. Additional Assessment Internal Medicine Attending Note: Case discussed with and agree with note and management plan of Resident Physician as per Resident's Note above. Issues of concern for present visit are as follows: Follow-up visit. Noting chronic cough. Previously treated with Augmentin for community-acquired pneumonia with improvement of all symptoms except for cough. Noting some watering of eyes. Suspect may have postnasal drip as cause of cough. We will do a trial of antihistamine. Patient is on a PPI. Other needed refills provided today. Daniel Hussein MD Advanced Care Planning Advance care planning discussed with:: patient and sibling Physician Billing Established Patient Established Patient: E/M Level 3-CPT 24394 Office Procedures [facility] Level of Care Nursing/Assessment Patient Status: Established Patient Nursing Assessment/Reassessment: Medication Reconciliation, Update PMH in EMR and Vital Signs Coordination of Care: Complex Care and Chronic Disease 1-5, Consent,records obtained, informed consent, Education Simp Pt/Fam and Staff clarify orders Established Patient Charge Established Patient Point Assignment: 85 Established Patient Point Charge: EP Level 3 (80-115)
== END 2024-04-30 14:52 | disposition home or self-care (01) ==
PROVIDERS: PCP Student in an Organized Health Care Education/Training Program; Referring Provider Student in an Organized Health Care Education/Training Program; Supervising Provider Internal Medicine; Visit Provider Student in an Organized Health Care Education/Training Program
DX: R05.3 Chronic cough (principal); I10 Essential (primary) hypertension; G62.9 Polyneuropathy, unspecified; F41.9 Anxiety disorder, unspecified; H57.89 Other specified disorders of eye and adnexa
CPT/HCPCS: 99213; G0463

== ENCOUNTER → 2024-05-19 | Outpatient (CLI) | payer MEDICARE, MEDICAID, SELFPAY ==
--- NOTE | 2024-05-19 13:00 | XR_ITS ---
Examination: Breast ultrasound complete, bilateral Date and time of exam: May 19, 2024 1431 hours INDICATIONS: Palpable lump left breast beginning 3 weeks ago, history left breast cancer with mastectomy November 17, 2019 Technique: Real-time grayscale ultrasonographic imaging bilateral breasts, including all 4 quadrants as well as nipple retroareolar and axillary regions. Findings: Sonographic images right breast No cystic or solid masses Probably benign right axillary lymph nodes Sonographic images left breast Retroareolar oval mass indistinct margins 11 x 5 x 9 mm IMPRESSION: BI-RADS Category 4: Suspicious for malignancy Suspicious mass retroareolar region left breast, biopsy is needed to exclude breast carcinoma, this mass is amenable to ultrasound-guided breast biopsy for diagnosis
== END | disposition home or self-care (01) ==
LOC: CDIM 13:34
PROVIDERS: PCP Student in an Organized Health Care Education/Training Program; Referring Provider Radiology Therapeutic Radiology; Visit Provider Radiology Therapeutic Radiology
DX: N63.42 Unspecified lump in left breast, subareolar (principal); C50.112 Malignant neoplasm of central portion of left female breast
CPT/HCPCS: 76641

== ENCOUNTER 2024-05-25 14:52 | Outpatient (AMB) | payer MEDICARE, MEDICAID, SELFPAY ==
[2024-05-25 14:55] VITALS: BP 106/74; PULSE 64; RESP 18; TEMP 36.3; O2SAT 95
--- NOTE | 2024-05-25 14:55 | ACNOTE_ITS ---
Vital Signs 05/25/24 14:55 Height 1.52 m Height Method Stated Weight Measurement Method Wheelchair BP 106/74 Blood Pressure Source Automatic Cuff Blood Pressure Location Right Upper Arm Position Sitting Respiration 18 Pulse 64 Pulse Source Monitor Temp 97.3 F Temp Source Temporal Artery Scan Pulse Oximetry (%) 95 Oxygen Delivery Method Room Air Allergies/Meds Allergies & Medications Allergies No Known Allergies Allergy (Verified 05/25/24 14:56) Medication Reconciliation sertraline 100 mg tablet 100 mg PO DAILY 06/11/22 [History Confirmed 05/25/24] rivastigmine 4.6 mg/24 hour transdermal patch 4.6 mg topical QDAY 08/19/23 [History Confirmed 05/25/24] lisinopril 40 mg tablet 40 mg PO QDAY 1 month #30 tabs 09/03/23 [Rx Confirmed 05/25/24] ibandronate 150 mg tablet 150 mg PO QMONTH osteoporosis #1 tab 10/31/23 [Rx Confirmed 05/25/24] guaifenesin 100 mg/5 mL oral liquid 200 mg (10 mL) PO BIDWMEAL #500 mL 01/30/24 [Rx Confirmed 05/25/24] azithromycin 250 mg tablet See Rx Instructions PO .COMPLEX #6 tabs 02/04/24 [Rx Confirmed 05/25/24] albuterol sulfate 90 mcg/actuation aerosol inhaler 1 puff inhalation Q8H PRN shortness of breath or wheezing #8.5 grams 03/19/24 [Rx Confirmed 05/25/24] amlodipine 10 mg tablet 10 mg PO QDAY 30 days #30 tabs 03/19/24 [Rx Confirmed 05/25/24] gabapentin 300 mg capsule 300 mg PO BID neuropathy #60 caps 03/26/24 [Rx Confirmed 05/25/24] clonazepam 0.5 mg tablet 0.5 mg PO QDAY PRN anxiety #4 tabs 04/11/24 [Rx Confirmed 05/25/24] alprazolam 0.5 mg tablet 0.5 mg PO TID Anxiety #90 tabs 04/30/24 [Rx Confirmed 05/25/24] cetirizine 10 mg tablet (Zyrtec) 10 mg PO QDAY PRN allergy symptoms #30 tabs 04/30/24 [Rx Confirmed 05/25/24] dexlansoprazole 60 mg capsule,biphase delayed release 60 mg PO DAILY 30 days #30 caps 04/30/24 [Rx Confirmed 05/25/24] furosemide 40 mg tablet 40 mg PO DAILY #30 tabs 04/30/24 [Rx Confirmed 05/25/24] lidocaine 5 % topical cream 1 applic topical TID PRN pain #15 grams 04/30/24 [Rx Confirmed 05/25/24] rivaroxaban 10 mg tablet (Xarelto) 10 mg PO DAILY 30 days #30 tabs 04/30/24 [Rx Confirmed 05/25/24] Held on 05/25/24. Instructions: Doctor's Order amoxicillin 875 mg-potassium clavulanate 125 mg tablet 1 tab PO BID 5 days #10 tabs 05/25/24 [Rx] clotrimazole 1 % topical cream 1 applic topical TID PRN rash in groin #45 grams 05/25/24 [Rx] menthol 5 % topical patch (Biofreeze (menthol)) 1 patch topical TID-QID PRN pain #4 ea 05/25/24 [Rx] MA Intake Visit Data Collection New Patient or Established: Established Patient (seen at [facility] within 3 years) Seen by Clinical Staff ONLY (RN/MA): No Pain Present Currently: No Pain scale:: 0 Pain Scale Used: Mendez-Holguin/Numerical Senior Radiation Therapist Required: No PCP or OBGYN visit in last 3 months: No Hx Now: No Do You Feel Safe at Home: Yes Authorities Contacted: N/A Smoking Status Smoking Status: Never smoker Immunization / Flu Flu Vaccine in the Last 12 Months: No Flu Vaccine Exclusion Criteria: No Exclusion Criteria Past Medical History Past Medical History NEUROLOGIC: Positive Neurological Disorders and Cerebrovascular Accident (10 years ago); Negative Seizures CARDIAC: Positive Hypertension; Negative Cardiac Disorders, Congestive Heart Failure, Edema, Cellulitis or Varicose Veins RESPIRATORY: Negative Chronic Obstructive Pulmonary Disease (COPD), Asthma, Pneumonia, Tuberculosis or Sleep Apnea GASTROINTESTINAL: Positive Gastrointestinal Disorders and Hemorrhoids; Negative Hepatitis GENITOURINARY: Negative Genitourinary Disorders or Renal Disease REPRODUCTIVE: Positive Breast Cancer and Previous Pregnancies MUSCULOSKELETAL: Positive Arthritis ENDOCRINE: Negative Endocrine Disorders, Diabetes Mellitus Type 1, Diabetes Mellitus Type 2, Hyperthyroidism or Hypothyroidism HEMATOLOGIC: Negative Blood Disorders, Anemia or Sickle Cell Disease PSYCHO/SOCIAL: Positive Depression and Anxiety OTHER HISTORY: Positive Hospitalization, Falls, Cancer (left nipple) and Breast Cancer; Negative Shingles, Blood Transfusions, Anesthesia Reactions, Chemotherapy, Radiation Therapy, MRSA, Chicken Pox, Measles or Mumps Family History FAMILY HISTORY: Positive Family Cardiac Disorders; Negative Family Psychiatric Problems, Family Respiratory Disorders, Family Gastrointestinal Problems, Family Cancer, Family Surgery or Family Anesthesia Reaction Surgical History SURGICAL: Positive Lumpectomy, Hysterectomy and Tubal Ligation; Negative Pacemaker Social History SMOKING STATUS: Smoking status: Never smoker ALCOHOL: Alcohol Intake: Never HOUSING: Housing: House LIVES WITH: Lives With: Family Patient Mark Rasmussen Social History Living Situation History Housing: House Tobacco History Smoking Status: Never smoker Alcohol History Alcohol Intake: Never Domestic Abuse History Do You Feel Safe at Home: Yes Review of Systems Report any current symptoms Only answer those that you have currently: Past Medical History Past Medical History Have you ever been diagnosed with any of the following: Neurological Problems Cerebrovascular Accident (CVA): Yes (10 years ago) Seizures: No Cardiology Problems Congestive Heart Failure: No Edema: No Cellulitis: No Hypertension: Yes Varicose Veins: No Respiratory Problems Chronic Obstructive Pulmonary Disease (COPD): No Asthma: No Pneumonia: No Tuberculosis: No Sleep Apnea: No Stomache/Intestinal Problems Hepatitis: No Hemorrhoids: Yes Genital/Urinary Problems Renal Disease: No Reproductive Problems Breast Cancer: Yes Previous Pregnancies: Yes Musculoskeletal Problems Arthritis: Yes Endocrine Problems Diabetes Mellitus Type 1: No Diabetes Mellitus Type 2: No Hyperthyroidism: No Hypothyroidism: No Blood Problems Anemia: No Sickle Cell Disease: No Psychologic Problems Depression: Yes Anxiety: Yes Other Problems Hospitalization: Yes Shingles: No Falls: Yes Blood Transfusions: No Anesthesia Reactions: No Chemotherapy: No Radiation Therapy: No MRSA: No Chicken Pox: No Measles: No Mumps: No Cancer: Yes (left nipple) Surgical History Hysterectomy: Yes Pacemaker: No History of Present Illness HPI Narrative Patient is a 84-year-old female with past medical history of hypertension, HFpEF aortic stenosis anxiety, peripheral neuropathy, left breast cancer stage II aT2a status post partial mastectomy postop radiation and hormone manipulation with biopsies that showed invasive ductal carcinoma and possible recurrence of the lower outer quadrant cancer on the left breast being followed by Dr. Underwood outpatient came to visit due to a 1 day history of blood in the urine. Patient is speaking and was accompanied by caregivers including daughter and [id number]. They explained that the patient is mostly wheelchair-bound with several ulcers in her groin area and yesterday when she used the bathroom they found blood in the tissue after cleaning as well as dark orange urine. Patient states that she has not experienced any pain or burning with urination. They deny any fevers or chills recent travel. 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 Patient also complains more about a persistent cough that has been worse in the last couple of weeks. She has a history of heavy smoking more than 30 years but has quit many years ago. The story is very limited due to poor historians in the room. Patient does not drink. She denies any weight loss, but does have cough with mild SOB. No diarrhea. Review of Systems Review of Systems Systems Reviewed: All systems reviewed, normal except as documented Objective/Exam Narrative Physical exam: Constitutional: Well nourished and in no acute distress CVS: RRR, S1 and S2 present, no murmurs, rubs or gallops . No pitting edema RESP: CTAB, no SOB, some rhonchi heard bilaterally but no accessory muscles being used. GI: Normal BS, Nontender/Nondistended. MSK: Full range of motion, No trauma or deformities or masses. Skin: Warm to touch, Dry. No rashes or lesions. No hematomas Neuro: courtroom clerk II-XII grossly intact. Sensation grossly intact. Psych: (AAO) x3 . Appropriate mood and affect. Assessment & Plan Diagnosis / Problem List (1) Community acquired bacterial pneumonia: Status: Acute Assessment & Plan: Patient has been having chronic cough for the last couple weeks and she has bilateral rhonchi on physical examination. She also uses inhalers at home and she is a previous heavy smoker. Could be a component of COPD however due to her risk of possible lung metastasis from her left breast cancer will order further imaging Plan: ? Chest x-ray ?Augmentin 875 twice a day for 5 days (2) Hematuria: Status: Acute Assessment & Plan: Family members state the patient had a episode of hematuria last night after urinating dark red blood in the toilet. She is taking Xarelto for unknown exact reason but family states that for peripheral artery disease. Patient denies any burning in the urine or pain Plan: ? Hold Xarelto at this time ? Urinalysis ? Patient was instructed to return once urinalysis is performed ? If patient has a UTI that can be treated with antibiotics following cultures however if she does have hematuria that she will likely need further imaging with renal ultrasound and possible cystoscopy with urology. ? The importance of holding Xarelto this time was informed to the patient and her family and his urinalysis is negative for hematuria she can continue on Xarelto as it might likely have been one of her chronic superficial ulcers bleeding. Orders: Orders XR chest 2V Today J15.9 - Unspecified bacterial pneumonia Urinalysis, C/S if Indicated Today R31.9 - Hematuria, unspecified Advanced Care Planning Advance care planning discussed with:: patient Office Procedures [facility] Level of Care Nursing/Assessment Patient Status: Established Patient Nursing Assessment/Reassessment: Medication Reconciliation, Update PMH in EMR and Vital Signs Coordination of Care: Complex Care and Chronic Disease 1-5, Consent,records obtained, informed consent, Education Simp Pt/Fam, Lab and Imaging orders and Staff clarify orders Established Patient Charge Established Patient Point Assignment: 100 Established Patient Point Charge: EP Level 3 (80-115)
== END 2024-05-25 15:54 | disposition home or self-care (01) ==
LOC: HODAHC 14:52
PROVIDERS: PCP Student in an Organized Health Care Education/Training Program; Referring Provider Student in an Organized Health Care Education/Training Program; Supervising Provider Internal Medicine; Visit Provider Student in an Organized Health Care Education/Training Program
DX: R31.9 Hematuria, unspecified (principal); R05.3 Chronic cough
CPT/HCPCS: 99213; G0463

== ENCOUNTER 2024-06-25 13:01 | Outpatient (AMB) | payer MEDICARE, MEDICAID, SELFPAY ==
[2024-06-25 13:12] VITALS: BP 111/68; PULSE 58; RESP 16; TEMP 35.9; O2SAT 93
--- NOTE | 2024-06-25 13:12 | PD.RESCLINIC ---
Vital Signs 06/25/24 13:12 Height 1.52 m Height Method Stated Weight Measurement Method Wheelchair BP 111/68 Blood Pressure Source Automatic Cuff Blood Pressure Location Right Upper Arm Position Sitting Respiration 16 Pulse 58 L Pulse Source Monitor Temp 96.7 F L Temp Source Temporal Artery Scan Pulse Oximetry (%) 93 L Oxygen Delivery Method Room Air Allergies/Meds Allergies & Medications Allergies No Known Allergies Allergy (Verified 06/25/24 13:13) Medication Reconciliation sertraline 100 mg tablet 100 mg PO DAILY 06/11/22 [History Confirmed 06/25/24] rivastigmine 4.6 mg/24 hour transdermal patch 4.6 mg topical QDAY 08/19/23 [History Confirmed 06/25/24] lisinopril 40 mg tablet 40 mg PO QDAY 1 month #30 tabs 09/03/23 [Rx Confirmed 06/25/24] ibandronate 150 mg tablet 150 mg PO QMONTH osteoporosis #1 tab 10/31/23 [Rx Confirmed 06/25/24] guaifenesin 100 mg/5 mL oral liquid 200 mg (10 mL) PO BIDWMEAL #500 mL 01/30/24 [Rx Confirmed 06/25/24] albuterol sulfate 90 mcg/actuation aerosol inhaler 1 puff inhalation Q8H PRN shortness of breath or wheezing #8.5 grams 03/19/24 [Rx Confirmed 06/25/24] amlodipine 10 mg tablet 10 mg PO QDAY 30 days #30 tabs 03/19/24 [Rx Confirmed 06/25/24] gabapentin 300 mg capsule 300 mg PO BID neuropathy #60 caps 03/26/24 [Rx Confirmed 06/25/24] cetirizine 10 mg tablet (Zyrtec) 10 mg PO QDAY PRN allergy symptoms #30 tabs 04/30/24 [Rx Confirmed 06/25/24] dexlansoprazole 60 mg capsule,biphase delayed release 60 mg PO DAILY 30 days #30 caps 04/30/24 [Rx Confirmed 06/25/24] furosemide 40 mg tablet 40 mg PO DAILY #30 tabs 04/30/24 [Rx Confirmed 06/25/24] lidocaine 5 % topical cream 1 applic topical TID PRN pain #15 grams 04/30/24 [Rx Confirmed 06/25/24] rivaroxaban 10 mg tablet (Xarelto) 10 mg PO DAILY 30 days #30 tabs 04/30/24 [Rx Confirmed 06/25/24] Held on 05/25/24. Instructions: Doctor's Order clotrimazole 1 % topical cream 1 applic topical TID PRN rash in groin #45 grams 05/25/24 [Rx Confirmed 06/25/24] menthol 5 % topical patch (Biofreeze (menthol)) 1 patch topical TID-QID PRN pain #4 ea 05/25/24 [Rx Confirmed 06/25/24] alprazolam 0.5 mg tablet 0.5 mg PO TID Anxiety #90 tabs 06/17/24 [Rx Confirmed 06/25/24] levofloxacin 750 mg tablet 750 mg PO QDAY #7 tabs 06/25/24 [Rx] MA Intake Visit Data Collection New Patient or Established: Established Patient (seen at [facility] within 3 years) Seen by Clinical Staff ONLY (RN/MA): No Pain Present Currently: No Pain scale:: 0 Pain Scale Used: Mendez-Holguin/Numerical Microfilm Machine Operator Required: No PCP or OBGYN visit in last 3 months: No Hx Now: No Do You Feel Safe at Home: Yes Authorities Contacted: N/A Smoking Status Smoking Status: Never smoker Immunization / Flu Flu Vaccine in the Last 12 Months: No Flu Vaccine Exclusion Criteria: No Exclusion Criteria Past Medical History Past Medical History NEUROLOGIC: Positive Neurological Disorders and Cerebrovascular Accident (10 years ago); Negative Seizures CARDIAC: Positive Hypertension; Negative Cardiac Disorders, Congestive Heart Failure, Edema, Cellulitis or Varicose Veins RESPIRATORY: Negative Chronic Obstructive Pulmonary Disease (COPD), Asthma, Pneumonia, Tuberculosis or Sleep Apnea GASTROINTESTINAL: Positive Gastrointestinal Disorders and Hemorrhoids; Negative Hepatitis GENITOURINARY: Negative Genitourinary Disorders or Renal Disease REPRODUCTIVE: Positive Breast Cancer and Previous Pregnancies MUSCULOSKELETAL: Positive Arthritis ENDOCRINE: Negative Endocrine Disorders, Diabetes Mellitus Type 1, Diabetes Mellitus Type 2, Hyperthyroidism or Hypothyroidism HEMATOLOGIC: Negative Blood Disorders, Anemia or Sickle Cell Disease PSYCHO/SOCIAL: Positive Depression and Anxiety OTHER HISTORY: Positive Hospitalization, Falls, Cancer (left nipple) and Breast Cancer; Negative Shingles, Blood Transfusions, Anesthesia Reactions, Chemotherapy, Radiation Therapy, MRSA, Chicken Pox, Measles or Mumps Family History FAMILY HISTORY: Positive Family Cardiac Disorders; Negative Family Psychiatric Problems, Family Respiratory Disorders, Family Gastrointestinal Problems, Family Cancer, Family Surgery or Family Anesthesia Reaction Surgical History SURGICAL: Positive Lumpectomy, Hysterectomy and Tubal Ligation; Negative Pacemaker Social History SMOKING STATUS: Smoking status: Never smoker ALCOHOL: Alcohol Intake: Never HOUSING: Housing: House LIVES WITH: Lives With: Family Patient Portal Questionaires Social History Living Situation History Housing: House Tobacco History Smoking Status: Never smoker Alcohol History Alcohol Intake: Never Domestic Abuse History Do You Feel Safe at Home: Yes Review of Systems Report any current symptoms Only answer those that you have currently: Past Medical History Past Medical History Have you ever been diagnosed with any of the following: Neurological Problems Cerebrovascular Accident (CVA): Yes (10 years ago) Seizures: No Cardiology Problems Congestive Heart Failure: No Edema: No Cellulitis: No Hypertension: Yes Varicose Veins: No Respiratory Problems Chronic Obstructive Pulmonary Disease (COPD): No Asthma: No Pneumonia: No Tuberculosis: No Sleep Apnea: No Stomache/Intestinal Problems Hepatitis: No Hemorrhoids: Yes Genital/Urinary Problems Renal Disease: No Reproductive Problems Breast Cancer: Yes Previous Pregnancies: Yes Musculoskeletal Problems Arthritis: Yes Endocrine Problems Diabetes Mellitus Type 1: No Diabetes Mellitus Type 2: No Hyperthyroidism: No Hypothyroidism: No Blood Problems Anemia: No Sickle Cell Disease: No Psychologic Problems Depression: Yes Anxiety: Yes Other Problems Hospitalization: Yes Shingles: No Falls: Yes Blood Transfusions: No Anesthesia Reactions: No Chemotherapy: No Radiation Therapy: No MRSA: No Chicken Pox: No Measles: No Mumps: No Cancer: Yes (left nipple) Surgical History Hysterectomy: Yes Pacemaker: No History of Present Illness HPI Narrative Patient is an 84-year-old female with history of left breast DCIS s/p radiation, lumpectomy, aortic stenosis/hypertension who presents for a 2 month follow up appointment. She is accompanied by her daughter, and history obtained from caregiver in room, as well as another daughter and granddaughter over the phone. Issues of concern is a lingering cough (initially noted in March 2024), that is productive of green sputum. Since March, patient has had 1 CXR and 2 courses of augmentin without improvement. Will order cocci to rule out valley fever, and try 1 week course of levaquin. Will also order CXR to further evaluate. Patient may require a chest CT if XR is unremarkable, as she has history of breast cancer and a new left breast mass, as seen on US. US results were conveyed to daughter, and patient has a follow up appointment at [facility] for further work up. Additional concern was of right foot/heel pain. Difficult to understand the type of pain, as patient cannot describe, but granddaughter over the phone states it is constant and wakes her up at night. Will order uric acid to rule out gout as cause of foot pain, as well as XR of right foot. Noted a stage I nonblanching pressure sore at right heel, so wound care referral also sent. ROS pertinent for productive cough of green sputum and right foot/heel pain; denies fever/chills/SOB/chest pain. Review of Systems Review of Systems Systems Reviewed: All systems reviewed, normal except as documented Objective/Exam Narrative Physical exam: Gen: elderly female in wheelchair, pleasant to speak with HEENT: NCAT, PERRLA, EOMI, MMM CVS: normal S1, S2. RRR. Holosystolic murmur in R 2nd ICS with radiation to carotid Resp: Occasional rhonchi, diminished breath sounds Abd: soft, non-tender, non-distended. BS+ in all 4 quadrants MSK: Good ROM in BUE; R heel with stage I pressure sore; edema in right ankle with TTP at heel/lateral malleolus Neuro: CN II-XII grossly intact; GCS 15. No focal deficits appreciated Assessment & Plan Diagnosis / Problem List (1) Cough in adult patient: Status: Acute Assessment & Plan: has been lingering since March 2024 2 courses of augmentin did not improve now productive with green sputum Plan: Will broaden abx to levaquin 750mg x 7days F/U cocci to rule out Valley Fever Repeat CXR ordered Concern for possible CAP vs post-obstructive pneumonia; patient may need CT chest to further evaluate if CXR is inconclusive (2) Foot pain, right: Status: Acute Assessment & Plan: TTP at right heel/lateral malleolous with edema noted Plan: XR right foot F/U uric acid to rule out gout (3) Pressure injury of right foot, stage 1: Status: Acute Assessment & Plan: Stage I non blanching injury noted at right heel Plan: Wound care referral (4) Breast lump in lower-outer quadrant: Status: Acute Assessment & Plan: Suspicious mass retroareolar region left breast, as seen on US (May 2024) Patient has already been seen by Onc Plan: Patient has a follow up appointment at [facility] with Dr. Underwood on July 23 Plan F/U labs: Cocci, Uric acid F/U XR chest F/U XR right foot Wound care referral F/U oncology - July 23 Orders: Orders Uric Acid 06/25/24 M79.671 - Pain in right foot XR foot comp RT min 3V 06/25/24 M79.671 - Pain in right foot XR chest 2V 06/25/24 J15.9 - Unspecified bacterial pneumonia, R05.9 - Cough, unspecified Cocci Serology, Unk History 06/25/24 J15.9 - Unspecified bacterial pneumonia, R06.02 - Shortness of breath Referrals Wound Healing L89.891 - Pressure ulcer of other site, stage 1 Additional Assessment Internal Medicine Attending Note: Case discussed with and agree with note and management plan of Resident Physician as per Resident's Note above. Issues of concern for present visit are as follows: 2-month follow-up appointment. Complaining of lingering cough, productive of green sputum. Has had a chest x-ray and 2 courses of Augmentin without improvement. We will recheck a chest x-ray, treat with a 1 week course of levofloxacin to expand coverage. Screen for coccidioidomycosis. If this does not improve, would potentially check a CT of the chest as there is a new left breast mass. This was seen on ultrasound, patient has a follow-up appointment at the cancer treatment center to further work this up. Complaining of right foot/heel pain, there is a stage I nonblanching pressure ulcer on the right heel, we will make a referral to wound care. Daniel Hussein MD Advanced Care Planning Advance care planning discussed with:: patient and child Physician Billing Established Patient Established Patient: E/M Level 3-CPT 46712 Office Procedures [facility] Level of Care Nursing/Assessment Patient Status: Established Patient Nursing Assessment/Reassessment: Medication Reconciliation, Update PMH in EMR and Vital Signs Coordination of Care: Complex Care and Chronic Disease 1-5, Consent,records obtained, informed consent, Education Simp Pt/Fam and Staff clarify orders Established Patient Charge Established Patient Point Assignment: 85 Established Patient Point Charge: EP Level 3 (80-115)
== END 2024-06-25 14:35 | disposition home or self-care (01) ==
LOC: HODAHC 13:01
PROVIDERS: PCP Student in an Organized Health Care Education/Training Program; Referring Provider Student in an Organized Health Care Education/Training Program; Supervising Provider Internal Medicine; Visit Provider Student in an Organized Health Care Education/Training Program
DX: R05.9 Cough, unspecified (principal); I10 Essential (primary) hypertension; N63.23 Unspecified lump in the left breast, lower outer quadrant; L89.611 Pressure ulcer of right heel, stage 1; Z86.000 Personal history of in-situ neoplasm of breast
CPT/HCPCS: 99213; G0463

== ENCOUNTER → 2024-07-13 | Outpatient (CLI) | payer MEDICARE, MEDICAID, SELFPAY ==
--- NOTE | 2024-07-13 12:09 | XR_ITS ---
Examination: Foot, right, 3 views Technique: AP, oblique, lateral views foot, 3 views Date and time of exam: July 05, 2024 1323 hours INDICATIONS: Foot pain beginning 3 days ago FINDINGS: Severe osteopenia No acute fracture 4 mm plantar bony calcaneal spur Ossification in the plantar fascia IMPRESSION: No acute fracture Given the severe osteopenia, suggest short-term follow-up as clinically warranted
--- NOTE | 2024-07-13 12:09 | XR_ITS ---
Examination: AP lateral chest 2 views TECHNIQUE: Sitting AP lateral chest 2 views Exam date and time: July 05, 2024 1323 hours Comparison March 20, 2024 INDICATIONS: Coughing beginning 3 days ago. FINDINGS: Mild opacity left base obscuring detail posterior portion left hemidiaphragm Right lung clear Mild enlargement cardiac contour Severe osteopenia Surgical clips left axilla IMPRESSION: Mild pneumonia left base
[2024-07-13 12:59] LABS: Uric Acid 7.1 mg/dL (3.1-7.8)
[2024-07-13 14:38] LABS: Cocci Serology, IgM Negative (Negative)
[2024-07-15 10:57] LABS: Cocci Serology, IgG Negative (Negative)
== END | disposition home or self-care (01) ==
LOC: SDIM 11:45
PROVIDERS: PCP Student in an Organized Health Care Education/Training Program; Referring Provider Student in an Organized Health Care Education/Training Program; Visit Provider Student in an Organized Health Care Education/Training Program
DX: J15.9 Unspecified bacterial pneumonia (principal); M85.871 Other specified disorders of bone density and structure, right ankle and foot; R06.02 Shortness of breath
CPT/HCPCS: 36415; 71046; 73630; 84550; 86331; 86635

== ENCOUNTER 2024-07-21 10:31 | Outpatient (AMB) | payer MEDICARE, MEDICAID, SELFPAY ==
[2024-07-21 10:43] VITALS: BP 124/78; PULSE 58; RESP 18; TEMP 36.2; O2SAT 94
--- NOTE | 2024-07-21 10:43 | ACNOTE_ITS ---
Vital Signs 07/21/24 10:43 Height 1.52 m Height Method Stated Weight Measurement Method Wheelchair BP 124/78 Blood Pressure Source Automatic Cuff Blood Pressure Location Right Upper Arm Position Sitting Respiration 18 Pulse 58 L Pulse Source Monitor Temp 97.2 F Temp Source Temporal Artery Scan Pulse Oximetry (%) 94 L Oxygen Delivery Method Room Air Allergies/Meds Allergies & Medications Allergies No Known Allergies Allergy (Verified 07/21/24 10:44) Medication Reconciliation sertraline 100 mg tablet 100 mg PO DAILY 06/11/22 [History Confirmed 07/21/24] rivastigmine 4.6 mg/24 hour transdermal patch 4.6 mg topical QDAY 08/19/23 [History Confirmed 07/21/24] lisinopril 40 mg tablet 40 mg PO QDAY 1 month #30 tabs 09/03/23 [Rx Confirmed 07/21/24] guaifenesin 100 mg/5 mL oral liquid 200 mg (10 mL) PO BIDWMEAL #500 mL 01/30/24 [Rx Confirmed 07/21/24] albuterol sulfate 90 mcg/actuation aerosol inhaler 1 puff inhalation Q8H PRN shortness of breath or wheezing #8.5 grams 03/19/24 [Rx Confirmed 07/21/24] amlodipine 10 mg tablet 10 mg PO QDAY 30 days #30 tabs 03/19/24 [Rx Confirmed 07/21/24] gabapentin 300 mg capsule 300 mg PO BID neuropathy #60 caps 03/26/24 [Rx Confirmed 07/21/24] cetirizine 10 mg tablet (Zyrtec) 10 mg PO QDAY PRN allergy symptoms #30 tabs 04/30/24 [Rx Confirmed 07/21/24] dexlansoprazole 60 mg capsule,biphase delayed release 60 mg PO DAILY 30 days #30 caps 04/30/24 [Rx Confirmed 07/21/24] furosemide 40 mg tablet 40 mg PO DAILY #30 tabs 04/30/24 [Rx Confirmed 07/21/24] lidocaine 5 % topical cream 1 applic topical TID PRN pain #15 grams 04/30/24 [Rx Confirmed 07/21/24] rivaroxaban 10 mg tablet (Xarelto) 10 mg PO DAILY 30 days #30 tabs 04/30/24 [Rx Confirmed 07/21/24] Held on 05/25/24. Instructions: Doctor's Order clotrimazole 1 % topical cream 1 applic topical TID PRN rash in groin #45 grams 05/25/24 [Rx Confirmed 07/21/24] menthol 5 % topical patch (Biofreeze (menthol)) 1 patch topical TID-QID PRN pain #4 ea 05/25/24 [Rx Confirmed 07/21/24] levofloxacin 750 mg tablet 750 mg PO QDAY #7 tabs 06/25/24 [Rx Confirmed 07/21/24] alprazolam 0.5 mg tablet 0.5 mg PO TID Anxiety #90 tabs 07/20/24 [Rx Confirmed 07/21/24] calcium 600 mg (as carbonate)-vitamin D3 10 mcg (400 unit) tablet 1 tab PO BID 30 days #60 tabs 07/21/24 [Rx] ibandronate 150 mg tablet 150 mg PO QMONTH osteoporosis #1 tab 07/21/24 [Rx] MA Intake Visit Data Collection New Patient or Established: Established Patient (seen at [facility] within 3 years) Seen by Clinical Staff ONLY (RN/MA): No Pain Present Currently: No Pain scale:: 0 Pain Scale Used: Mendez-Holguin/Numerical Freelance Graphic Designer Required: No PCP or OBGYN visit in last 3 months: No Hx Now: No Do You Feel Safe at Home: Yes Authorities Contacted: N/A Smoking Status Smoking Status: Never smoker Immunization / Flu Flu Vaccine in the Last 12 Months: No Flu Vaccine Exclusion Criteria: No Exclusion Criteria Past Medical History Past Medical History NEUROLOGIC: Positive Neurological Disorders and Cerebrovascular Accident (10 years ago); Negative Seizures CARDIAC: Positive Hypertension; Negative Cardiac Disorders, Congestive Heart Failure, Edema, Cellulitis or Varicose Veins RESPIRATORY: Negative Chronic Obstructive Pulmonary Disease (COPD), Asthma, Pneumonia, Tuberculosis or Sleep Apnea GASTROINTESTINAL: Positive Gastrointestinal Disorders and Hemorrhoids; Negative Hepatitis GENITOURINARY: Negative Genitourinary Disorders or Renal Disease REPRODUCTIVE: Positive Breast Cancer and Previous Pregnancies MUSCULOSKELETAL: Positive Arthritis ENDOCRINE: Negative Endocrine Disorders, Diabetes Mellitus Type 1, Diabetes Mellitus Type 2, Hyperthyroidism or Hypothyroidism HEMATOLOGIC: Negative Blood Disorders, Anemia or Sickle Cell Disease PSYCHO/SOCIAL: Positive Depression and Anxiety OTHER HISTORY: Positive Hospitalization, Falls, Cancer (left nipple) and Breast Cancer; Negative Shingles, Blood Transfusions, Anesthesia Reactions, Chemotherapy, Radiation Therapy, MRSA, Chicken Pox, Measles or Mumps Family History FAMILY HISTORY: Positive Family Cardiac Disorders; Negative Family Psychiatric Problems, Family Respiratory Disorders, Family Gastrointestinal Problems, Family Cancer, Family Surgery or Family Anesthesia Reaction Surgical History SURGICAL: Positive Lumpectomy, Hysterectomy and Tubal Ligation; Negative Pacemaker Social History SMOKING STATUS: Smoking status: Never smoker ALCOHOL: Alcohol Intake: Never HOUSING: Housing: House LIVES WITH: Lives With: Family Patient Mark Rasmussen Social History Living Situation History Housing: House Tobacco History Smoking Status: Never smoker Alcohol History Alcohol Intake: Never Domestic Abuse History Do You Feel Safe at Home: Yes Review of Systems Report any current symptoms Only answer those that you have currently: Past Medical History Past Medical History Have you ever been diagnosed with any of the following: Neurological Problems Cerebrovascular Accident (CVA): Yes (10 years ago) Seizures: No Cardiology Problems Congestive Heart Failure: No Edema: No Cellulitis: No Hypertension: Yes Varicose Veins: No Respiratory Problems Chronic Obstructive Pulmonary Disease (COPD): No Asthma: No Pneumonia: No Tuberculosis: No Sleep Apnea: No Stomache/Intestinal Problems Hepatitis: No Hemorrhoids: Yes Genital/Urinary Problems Renal Disease: No Reproductive Problems Breast Cancer: Yes Previous Pregnancies: Yes Musculoskeletal Problems Arthritis: Yes Endocrine Problems Diabetes Mellitus Type 1: No Diabetes Mellitus Type 2: No Hyperthyroidism: No Hypothyroidism: No Blood Problems Anemia: No Sickle Cell Disease: No Psychologic Problems Depression: Yes Anxiety: Yes Other Problems Hospitalization: Yes Shingles: No Falls: Yes Blood Transfusions: No Anesthesia Reactions: No Chemotherapy: No Radiation Therapy: No MRSA: No Chicken Pox: No Measles: No Mumps: No Cancer: Yes (left nipple) Surgical History Hysterectomy: Yes Pacemaker: No History of Present Illness HPI Narrative Patient is a 84-year-old female with history of left breast DCIS s/p radiation and lumpectomy, aortic stenosis, and hypertension who presented to the [facility] for follow-up from a visit in June 2024. At that time, patient had a cough which was treated with a course of levofloxacin, chest x-ray and coccidiomycosis labs were ordered. Today, patient presents with daughter and caregiver who both assist in providing history. Certified human resources services specialist at [facility] was also used, patient gave permission to discuss care plan with caregiver and daughter. Today, patient's cough has resolved however patient continues to have a right heel pain that has worsened since last visit. Tests from previous visit were reviewed, chest x-ray showing pneumonia in the left base, uric acid within normal limits at 7.1, cocci labs are negative. Foot x-ray was also reviewed, revealed severe osteopenia with a 4 mm calcaneal spur, no acute fracture, ossification in plantar fascia noted. Heel pain noted to worsen when in contact with bedding, pain is relieved with Tylenol and numbing cream use. When patient is laying in bed or sleeping, there is no repositioning that is reported. During daytime, patient is noted to sit mostly on a wheelchair with minimal physical activity or movement of the right heel. ROS is negative, patient has plans to continue care with Dr. Underwood in [facility], also has appointment set up with wound care in the next 1-2 weeks but has not yet been evaluated by wound care. Patient is also unsure of when a previous DEXA scan was ordered, however does endorse compliance to ibandronate medications, seeking medication refill today. On examination, grade 2 pressure injury suspected on right heel without signs of active infection, no erythema, swelling, or fever noted today. Will prescribe 1200 g calcium with 800 units vitamin D daily, split into BID doses. Will encourage patient to continue taking Tylenol as needed as well as numbing topical cream from [id number] to the right heel. Advised to follow-up with wound care in the next 1-2 weeks, also advised repositioning as frequently as possible and minimal pressure applied to the right heel. Will follow-up patient in 4 weeks and may consider podiatry referral for further management of calcaneal spur and osteopenia. Review of Systems Review of Systems Narrative Review of Systems: GENERAL: Denies fevers/chills or diaphoresis. HEENT: Denies headache or visual/hearing changes NEURO: Denies unusual weakness or difficulty speaking. CARDIO: Denies chest pain or palpitations. PULM: Denies SOB, coughing, or wheezing. GI: Denies abdominal pain, nausea, vomiting, or diarrhea Objective/Exam Narrative Physical exam: General: Alert and oriented, cooperative, in no acute distress HEENT: Atraumatic/normocephalic, EDWARDO, neck supple Heart: RRR, S1 and S2, systolic murmur appreciated Lungs: Clear on auscultation bilaterally, no difficulty breathing Abdomen: Soft, nontender. Bowel sounds present on all quadrants, no organomegaly Skin: Right heel wound likely grade 2 pressure injury, peripheral pulses palpable Neuro: No focal neurological deficits noted on appearance Assessment & Plan Diagnosis / Problem List (1) Osteopenia: Status: Acute Plan: On examination, grade 2 pressure injury suspected on right heel without signs of active infection, no erythema, swelling, or fever noted today. Advised patient to return to [facility], urgent care, or ED if any signs of infection develop. Will hold on prescribing antibiotics today, discussed plan with patient, daugther, and caregiver - all in agreement. Will prescribe 1200 g calcium with 800 units vitamin D daily, split into BID doses. Will encourage patient to continue taking Tylenol as needed as well as numbing topical cream from [id number] to the right heel. Advised to follow-up with wound care in the next 1-2 weeks, also advised repositioning as frequently as possible and minimal pressure applied to the right heel. Will follow-up patient in 4 weeks and may consider podiatry referral for further management of calcaneal spur and osteopenia. (2) Pressure injury of ankle, stage 2: Status: Acute Assessment & Plan: Additional assessment: Pain in right foot Plan: See above - encourage patient to continue taking Tylenol as needed as well as numbing topical cream from [id number] to the right heel. Advised to follow-up with wound care in the next 1-2 weeks, also advised repositioning as frequently as possible and minimal pressure applied to the right heel. Wound care referral previously placed, appointment set in next 2 weeks. (3) Breast lump in lower-outer quadrant: Status: Acute Plan: Continue following up with Dr. Underwood in [facility], appointment set for early July 2024. Additional Plan Patient case discussed with attending physician Dr. Keenan Wilhelm, PGY-3 Advanced Care Planning Advance care planning discussed with:: patient and other (Patient's daughter, caregiver also present) Office Procedures [facility] Level of Care Nursing/Assessment Patient Status: Established Patient Nursing Assessment/Reassessment: Medication Reconciliation, Update PMH in EMR and Vital Signs Coordination of Care: Complex Care and Chronic Disease 1-5, Consent,records obtained, informed consent, Education Simp Pt/Fam and Staff clarify orders Established Patient Charge Established Patient Point Assignment: 85 Established Patient Point Charge: Level 3 (80-115)
== END 2024-07-21 11:37 | disposition home or self-care (01) ==
LOC: HODAHC 10:31
PROVIDERS: Supervising Provider Internal Medicine; Visit Provider Student in an Organized Health Care Education/Training Program
DX: M85.871 Other specified disorders of bone density and structure, right ankle and foot (principal); M77.31 Calcaneal spur, right foot; I10 Essential (primary) hypertension; D05.12 Intraductal carcinoma in situ of left breast; Z92.3 Personal history of irradiation; Z90.12 Acquired absence of left breast and nipple
CPT/HCPCS: 99213; G0463

== ENCOUNTER → 2024-07-23 | Outpatient (CLI) | payer MEDICARE, MEDICAID, SELFPAY ==
[2024-07-22 12:52] LABS: Basophils % (Auto) 0 % (0-2.5); Eosinophils # (Auto) 0.2 Thou/mm3 (0.0-0.5); Eosinophils % (Auto) 5 % (0-10); Hematocrit 37.6 % (36.0-46.0); Hemoglobin 12.1 g/dL (12.0-16.0); Immature Granulocytes % (Auto) 0 % (0-0); Immature Granulocytes Auto 0.02 Thou/mm3 (0.00-0.00); Lymphocytes # (Auto) 1.4 Thou/mm3 (1.0-4.8); Lymphocytes % (Auto) 29 % (10-50); Mean Corpuscular HGB Conc 32.2 g/dl (31.0-37.0); Mean Corpuscular Hemoglobin 28.1 pg (25.0-35.0); Mean Corpuscular Volume 87 fL (80-100); Monocytes # (Auto) 0.3 Thou/mm3 (0.0-0.8); Monocytes % (Auto) 7 % (0-12); Neutrophils # (Auto) 2.9 Thou/mm3 (1.8-7.7); Neutrophils % (Auto) 59 % (37-80); Nucleated Red Blood Cell % 0 /100 WBC (0); Platelet Count 116 Thou/mm3 (140-440); RDW Standard Deviation 50.4 fL (36.4-46.3); Red Blood Count 4.31 Miln/mm3 (4.00-5.20); White Blood Count 4.8 Thou/mm3 (3.6-11.0)
[2024-07-22 13:08] LABS: INR 1.1 (0.9-1.3); Partial Thromboplastin Time 31.6 Seconds (22.0-36.0); Prothrombin Time 11.8 Seconds (9.0-12.2)
--- NOTE | 2024-07-23 08:30 | XR_ITS ---
Examinations: Ultrasound-guided percutaneous breast biopsy, left breast retroareolar nodule Left breast sonography limited INDICATIONS: BI-RADS 4 suspicious nodule retroareolar region left breast on left breast sonogram May 19, 2024. Exam date and time: July 23, 2024 0939 hours. Informed consent provided. Technique: A timeout was completed verifying correct patient, procedure, site, positioning, and special equipment if applicable Informed consent provided. The patient was placed in a supine position for the breast biopsy. Sonographic images of the breast were performed for localization of the suspicious nodule The patient's breast was prepped and draped in sterile fashion. Maximum sterile barrier technique, hand hygiene, ultrasound sterile technique 1% lidocaine was used to anesthetize the skin and breast adjacent to the suspicious nodule. Utilizing ultrasonographic guidance, 8 core biopsies were obtained of the suspicious nodule utilizing an 18-gauge BioPince needle. The specimens appears satisfactory. US guided breast biopsy marker placement. Estimated blood loss 3 cc. The patient tolerated the procedure well and there were no complications. Impression: Successful ultrasound-guided percutaneous breast biopsy, left breast retroareolar nodule. Ultrasound guided breast biopsy marker placement.
== END | disposition home or self-care (01) ==
LOC: SIRX 08:09
PROVIDERS: Radiology Diagnostic Radiology; Referring Provider Radiology Therapeutic Radiology; Visit Provider Radiology Therapeutic Radiology
DX: R92.8 Other abnormal and inconclusive findings on diagnostic imaging of breast (principal); C50.112 Malignant neoplasm of central portion of left female breast; Z01.812 Encounter for preprocedural laboratory examination
CPT/HCPCS: 19083; 36415; 85025; 85610; 85730; A4648

== ENCOUNTER → 2024-07-28 | Outpatient (CLI) | payer MEDICARE, MEDICAID, SELFPAY | END | disposition home or self-care (01) | LOC: SWHD 12:52 | PROVIDERS: Visit Provider Student in an Organized Health Care Education/Training Program | DX: L89.612 Pressure ulcer of right heel, stage 2 (principal); D64.9 Anemia, unspecified; F41.9 Anxiety disorder, unspecified; F32.A Depression, unspecified; I10 Essential (primary) hypertension; Z85.3 Personal history of malignant neoplasm of breast; G62.9 Polyneuropathy, unspecified | CPT/HCPCS: 99214; A9270; G0463 ==

== ENCOUNTER 2024-07-30 14:29 | Outpatient (RCR) | payer MEDICARE, MEDICAID, SELFPAY ==
--- NOTE | 2024-07-30 15:57 | CTCFLWUP_ITS ---
[facility] [address] [place], [place] [address] FOLLOW-UP NOTE Date: 07/30/2024 MR#: [id number] Name: NETO DENTON : 1940 Dx: C50.112 Malignant neoplasm of central portion of left female breast 83-year-old lady with history of stage II aT2a N0 left breast CA Status post partial mastectomy postop radiation completed March 2020. And hormone manipulation under Dr. Dang?s direction. Bilateral ultrasound 05/19/2024 suspicious of malignancy left breast retroareolar oval mass 11 x 5 x 9 mm. Ultrasound-guided biopsy 07/23/2024 inconclusive. Saw patient again and she preferred to wait before another biopsy attempt made. I will schedule for another ultrasound of the left breast in 3 months and see about another biopsy attempt. Electronically signed by: Chiki Underwood M.D. 07/30/2024 3:55 PM
== END 2024-08-15 23:59 | disposition home or self-care (01) ==
LOC: SCTC 14:29
PROVIDERS: PCP Student in an Organized Health Care Education/Training Program; Referring Provider Student in an Organized Health Care Education/Training Program; Visit Provider Radiology Therapeutic Radiology
DX: C50.112 Malignant neoplasm of central portion of left female breast (principal); Z90.12 Acquired absence of left breast and nipple; Z92.3 Personal history of irradiation
CPT/HCPCS: 99212; G0463

== ENCOUNTER → 2024-07-30 | Outpatient (CLI) | payer MEDICARE, MEDICAID, SELFPAY ==
--- NOTE | 2024-07-30 16:16 | XR_ITS ---
Examination: Foot, right, 3 views Technique: AP, oblique, lateral views foot, 3 views Date and time of exam: July 30, 2024, 1733 hours Comparison July 13, 2024 INDICATIONS: Right foot pain beginning 2 weeks ago. FINDINGS: The films are underpenetrated Nxwl-fy-avqdwdan bunion deformity Moderate narrowing first metatarsophalangeal joint. Soft tissue vascular calcification. No yanet cortical bone destruction. Tiny plantar posterior bony calcaneal spurs. IMPRESSION: Severe osteopenia Ibay-ro-lrmrjfse bunion deformity Moderate narrowing first metatarsophalangeal joint. No cortical bone destruction
== END | disposition home or self-care (01) ==
LOC: SDIM 15:47
PROVIDERS: PCP Student in an Organized Health Care Education/Training Program; Referring Provider Student in an Organized Health Care Education/Training Program; Visit Provider Student in an Organized Health Care Education/Training Program
DX: M85.871 Other specified disorders of bone density and structure, right ankle and foot (principal); M21.611 Bunion of right foot; M25.871 Other specified joint disorders, right ankle and foot
CPT/HCPCS: 73630

== ENCOUNTER → 2024-08-04 | Outpatient (CLI) | payer MEDICARE, MEDICAID, SELFPAY | END | disposition home or self-care (01) | LOC: SWHD 13:41 | PROVIDERS: PCP Student in an Organized Health Care Education/Training Program; Referring Provider Student in an Organized Health Care Education/Training Program; Visit Provider Student in an Organized Health Care Education/Training Program | DX: L89.612 Pressure ulcer of right heel, stage 2 (principal); L89.313 Pressure ulcer of right buttock, stage 3; F41.9 Anxiety disorder, unspecified; F32.9 Major depressive disorder, single episode, unspecified; I10 Essential (primary) hypertension; Z85.3 Personal history of malignant neoplasm of breast; G62.9 Polyneuropathy, unspecified | CPT/HCPCS: 97597; A9270 ==

== ENCOUNTER 2024-08-20 13:57 | Outpatient (AMB) | payer MEDICARE, MEDICAID, SELFPAY ==
[2024-08-20 14:06] VITALS: BP 120/62; PULSE 96; RESP 18; TEMP 36.5; O2SAT 96
--- NOTE | 2024-08-20 14:06 | ACNOTE_ITS ---
Vital Signs 08/20/24 14:06 08/20/24 14:18 Height 1.52 m Height Method Stated Weight Measurement Method Wheelchair BP 120/62 120/62 Blood Pressure Source Automatic Cuff Blood Pressure Location Right Upper Arm Position Sitting Respiration 18 18 Pulse 96 96 Pulse Source Monitor Temp 97.7 F 97.7 F Temp Source Temporal Artery Scan Pulse Oximetry (%) 96 96 Oxygen Delivery Method Room Air Allergies/Meds Allergies & Medications Allergies No Known Allergies Allergy (Verified 08/20/24 14:08) Medication Reconciliation sertraline 100 mg tablet 100 mg PO DAILY 06/11/22 [History Confirmed 08/20/24] rivastigmine 4.6 mg/24 hour transdermal patch 4.6 mg topical QDAY 08/19/23 [History Confirmed 08/20/24] guaifenesin 100 mg/5 mL oral liquid 200 mg (10 mL) PO BIDWMEAL #500 mL 01/30/24 [Rx Confirmed 08/20/24] albuterol sulfate 90 mcg/actuation aerosol inhaler 1 puff inhalation Q8H PRN shortness of breath or wheezing #8.5 grams 03/19/24 [Rx Confirmed 08/20/24] amlodipine 10 mg tablet 10 mg PO QDAY 30 days #30 tabs 03/19/24 [Rx Confirmed 08/20/24] cetirizine 10 mg tablet (Zyrtec) 10 mg PO QDAY PRN allergy symptoms #30 tabs 04/30/24 [Rx Confirmed 08/20/24] dexlansoprazole 60 mg capsule,biphase delayed release 60 mg PO DAILY 30 days #30 caps 04/30/24 [Rx Confirmed 08/20/24] lidocaine 5 % topical cream 1 applic topical TID PRN pain #15 grams 04/30/24 [Rx Confirmed 08/20/24] rivaroxaban 10 mg tablet (Xarelto) 10 mg PO DAILY 30 days #30 tabs 04/30/24 [Rx Confirmed 08/20/24] Held on 05/25/24. Instructions: Doctor's Order clotrimazole 1 % topical cream 1 applic topical TID PRN rash in groin #45 grams 05/25/24 [Rx Confirmed 08/20/24] menthol 5 % topical patch (Biofreeze (menthol)) 1 patch topical TID-QID PRN pain #4 ea 05/25/24 [Rx Confirmed 08/20/24] levofloxacin 750 mg tablet 750 mg PO QDAY #7 tabs 06/25/24 [Rx Confirmed 08/20/24] calcium 600 mg (as carbonate)-vitamin D3 10 mcg (400 unit) tablet 1 tab PO BID 30 days #60 tabs 07/21/24 [Rx Confirmed 08/20/24] ibandronate 150 mg tablet 150 mg PO QMONTH osteoporosis #1 tab 07/21/24 [Rx Confirmed 08/20/24] furosemide 40 mg tablet 40 mg PO DAILY #30 tabs 08/17/24 [Rx Confirmed 08/20/24] gabapentin 300 mg capsule 300 mg PO BID neuropathy #60 caps 08/17/24 [Rx Confirmed 08/20/24] alprazolam 0.5 mg tablet 0.5 mg PO TID Anxiety #90 tabs 08/20/24 [Rx] lisinopril 40 mg tablet 40 mg PO QDAY 1 month #30 tabs 08/20/24 [Rx Confirmed 08/20/24] amoxicillin 500 mg capsule 2,000 mg (4 x 500 mg) PO QDAY dental prophylaxis #4 caps 08/25/24 [Rx] MA Intake Visit Data Collection New Patient or Established: Established Patient (seen at [facility] within 3 years) Seen by Clinical Staff ONLY (RN/MA): No Reason for Visit:: 1 MO F/U Pain Present Currently: Yes Pain Location: Foot Pain scale:: 6 Pain Scale Used: Mendez-Holguin/Numerical Editor Producer Required: No PCP or OBGYN visit in last 3 months: Yes Date of Last PCP or OBGYN visit: 07/21/24 Hx Now: No Smoking Status Smoking Status: Never smoker Immunization / Flu Flu Vaccine in the Last 12 Months: No Flu Vaccine Exclusion Criteria: No Exclusion Criteria Past Medical History Past Medical History NEUROLOGIC: Positive Neurological Disorders and Cerebrovascular Accident (10 years ago); Negative Seizures CARDIAC: Positive Hypertension; Negative Cardiac Disorders, Congestive Heart Failure, Edema, Cellulitis or Varicose Veins RESPIRATORY: Negative Chronic Obstructive Pulmonary Disease (COPD), Asthma, Pneumonia, Tuberculosis or Sleep Apnea GASTROINTESTINAL: Positive Gastrointestinal Disorders and Hemorrhoids; Negative Hepatitis GENITOURINARY: Negative Genitourinary Disorders or Renal Disease REPRODUCTIVE: Positive Breast Cancer and Previous Pregnancies MUSCULOSKELETAL: Positive Arthritis ENDOCRINE: Negative Endocrine Disorders, Diabetes Mellitus Type 1, Diabetes Mellitus Type 2, Hyperthyroidism or Hypothyroidism HEMATOLOGIC: Negative Blood Disorders, Anemia or Sickle Cell Disease PSYCHO/SOCIAL: Positive Depression and Anxiety OTHER HISTORY: Positive Hospitalization, Falls, Cancer (left nipple) and Breast Cancer; Negative Shingles, Blood Transfusions, Anesthesia Reactions, Chemotherapy, Radiation Therapy, MRSA, Chicken Pox, Measles or Mumps Family History FAMILY HISTORY: Positive Family Cardiac Disorders; Negative Family Psychiatric Problems, Family Respiratory Disorders, Family Gastrointestinal Problems, Family Cancer, Family Surgery or Family Anesthesia Reaction Surgical History SURGICAL: Positive Lumpectomy, Hysterectomy and Tubal Ligation; Negative Pacemaker Social History SMOKING STATUS: Smoking status: Never smoker ALCOHOL: Alcohol Intake: Never HOUSING: Housing: House LIVES WITH: Lives With: Family Patient Portal Questionaires PHQ-9 PHQ-2 Over the last 2 weeks, how often have you been bothered by any of the following problems? 1. Little interest or pleasure in doing things: not at all 2. Feeling down, depressed, or hopeless: not at all Total score: 0 PHQ-9 3. Trouble falling or staying asleep, or sleeping too much: Not at all 4. Feeling tired or having little energy: Not at all 5. Poor appetite or overeating: Not at all 6. Feeling bad about yourself - or that you are a failure or have let yourself or your family down: Not at all 7. Trouble concentrating on things, such as reading the newspaper or watching television: Not at all 8. Moving or speaking so slowly that other people could have noticed? - Or the opposite - being so fidgety or restless that you have been moving around a lot more than usual: not at all 9. Thoughts that you would be better off or of hurting yourself in some way: Not at all Total score: 0 If you checked off any problems, how difficult have these problems made it for you to do your work, take care of things at home, or get along with other peopl e?: not difficult at all Source: Developed by Drs. Dean Lozada, Noemi Evans, Carlitos Krause and colleagues, with an educational jasmyne from [employer]. Depression screen completed yes Social History Living Situation History Lives With: Family Housing: House Tobacco History Smoking Status: Never smoker Alcohol History Alcohol Intake: Never Review of Systems Report any current symptoms Only answer those that you have currently: Past Medical History Past Medical History Have you ever been diagnosed with any of the following: Neurological Problems Cerebrovascular Accident (CVA): Yes (10 years ago) Seizures: No Cardiology Problems Congestive Heart Failure: No Edema: No Cellulitis: No Hypertension: Yes Varicose Veins: No Respiratory Problems Chronic Obstructive Pulmonary Disease (COPD): No Asthma: No Pneumonia: No Tuberculosis: No Sleep Apnea: No Stomache/Intestinal Problems Hepatitis: No Hemorrhoids: Yes Genital/Urinary Problems Renal Disease: No Reproductive Problems Breast Cancer: Yes Previous Pregnancies: Yes Musculoskeletal Problems Arthritis: Yes Endocrine Problems Diabetes Mellitus Type 1: No Diabetes Mellitus Type 2: No Hyperthyroidism: No Hypothyroidism: No Blood Problems Anemia: No Sickle Cell Disease: No Psychologic Problems Depression: Yes Anxiety: Yes Other Problems Hospitalization: Yes Shingles: No Falls: Yes Blood Transfusions: No Anesthesia Reactions: No Chemotherapy: No Radiation Therapy: No MRSA: No Chicken Pox: No Measles: No Mumps: No Cancer: Yes (left nipple) Surgical History Hysterectomy: Yes Pacemaker: No History of Present Illness HPI Narrative Patient is a 84-year-old female with 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 Patient has no concerns at this time, and needs chronic medication refills. Physical exam unremarkable, we will order routine labs for next appointment in 3 months. Review of Systems Review of Systems Systems Reviewed: All systems reviewed, normal except as documented Objective/Exam Narrative Physical exam: GENERAL: Awake, alert and oriented. No acute distress. HEENT: Normocephalic, atraumatic and nontender.? Pupils are equal and reactive to light and accommodation.? Oral mucosa moist. NECK: Supple without adenopathy. Traquea midline. Nontender, carotid pulse 2+ bilaterally without bruits, no JVD.? CHEST: Heart rate and rythm normal, no murmurs, gallops auscultated. S1 & 2 normal insensity. Nontender on palpation, no deformity and no crepitus. LUNGS: Lung sounds are clear.? No wheezing, rales or ronchi.? No intercostal subcostal retraction. Room air ABDOMEN: Soft,symmetric , nontender, no guarding or rebound tenderness. No abnormal masses palpated.? No pulsatile masses or bruits.? Bowel sounds are normoactive in all 4 quadrants. EXTREMITIES: Nontender.? No pitting edema.? No cyanosis.? Patient is able to move all 4 extremities. SKIN: No rashes noted. NEURO:? Cranial nerves intact.? There is no focalization.? GCS is 15. 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 Patient has no concerns at this time, and needs chronic medication refills. Physical exam unremarkable, we will order routine labs for next appointment in 3 months. Patient's care discussed with attending physician, Dr Keenan Capellan MD PGY3 Orders: Orders CBC 90 Days Kezia Capellan MD Comprehensive Metabolic Panel 90 Days Kezia Capellan MD Advanced Care Planning Advance care planning discussed with:: child Office Procedures [facility] Level of Care Nursing/Assessment Patient Status: Established Patient Nursing Assessment/Reassessment: Medication Reconciliation, Update PMH in EMR and Vital Signs Coordination of Care: Complex Care and Chronic Disease 1-5, Consent,records obtained, informed consent, Education Simp Pt/Fam and Staff clarify orders Established Patient Charge Established Patient Point Assignment: 85 Established Patient Point Charge: EP Level 3 (80-115)
--- NOTE | 2024-08-20 14:17 | PD.RESCLINIC ---
Vital Signs 08/20/24 14:06 Height 1.52 m Height Method Stated Weight Measurement Method Wheelchair BP 120/62 Blood Pressure Source Automatic Cuff Blood Pressure Location Right Upper Arm Position Sitting Respiration 18 Pulse 96 Pulse Source Monitor Temp 97.7 F Temp Source Temporal Artery Scan Pulse Oximetry (%) 96 Oxygen Delivery Method Room Air Allergies/Meds Allergies & Medications Allergies No Known Allergies Allergy (Verified 08/20/24 14:08) Medication Reconciliation sertraline 100 mg tablet 100 mg PO DAILY 06/11/22 [History Confirmed 08/20/24] rivastigmine 4.6 mg/24 hour transdermal patch 4.6 mg topical QDAY 08/19/23 [History Confirmed 08/20/24] guaifenesin 100 mg/5 mL oral liquid 200 mg (10 mL) PO BIDWMEAL #500 mL 01/30/24 [Rx Confirmed 08/20/24] albuterol sulfate 90 mcg/actuation aerosol inhaler 1 puff inhalation Q8H PRN shortness of breath or wheezing #8.5 grams 03/19/24 [Rx Confirmed 08/20/24] amlodipine 10 mg tablet 10 mg PO QDAY 30 days #30 tabs 03/19/24 [Rx Confirmed 08/20/24] cetirizine 10 mg tablet (Zyrtec) 10 mg PO QDAY PRN allergy symptoms #30 tabs 04/30/24 [Rx Confirmed 08/20/24] dexlansoprazole 60 mg capsule,biphase delayed release 60 mg PO DAILY 30 days #30 caps 04/30/24 [Rx Confirmed 08/20/24] lidocaine 5 % topical cream 1 applic topical TID PRN pain #15 grams 04/30/24 [Rx Confirmed 08/20/24] rivaroxaban 10 mg tablet (Xarelto) 10 mg PO DAILY 30 days #30 tabs 04/30/24 [Rx Confirmed 08/20/24] Held on 05/25/24. Instructions: Doctor's Order clotrimazole 1 % topical cream 1 applic topical TID PRN rash in groin #45 grams 05/25/24 [Rx Confirmed 08/20/24] menthol 5 % topical patch (Biofreeze (menthol)) 1 patch topical TID-QID PRN pain #4 ea 05/25/24 [Rx Confirmed 08/20/24] levofloxacin 750 mg tablet 750 mg PO QDAY #7 tabs 06/25/24 [Rx Confirmed 08/20/24] alprazolam 0.5 mg tablet 0.5 mg PO TID Anxiety #90 tabs 07/20/24 [Rx Confirmed 08/20/24] calcium 600 mg (as carbonate)-vitamin D3 10 mcg (400 unit) tablet 1 tab PO BID 30 days #60 tabs 07/21/24 [Rx Confirmed 08/20/24] ibandronate 150 mg tablet 150 mg PO QMONTH osteoporosis #1 tab 07/21/24 [Rx Confirmed 08/20/24] furosemide 40 mg tablet 40 mg PO DAILY #30 tabs 08/17/24 [Rx Confirmed 08/20/24] gabapentin 300 mg capsule 300 mg PO BID neuropathy #60 caps 08/17/24 [Rx Confirmed 08/20/24] lisinopril 40 mg tablet 40 mg PO QDAY 1 month #30 tabs 08/20/24 [Rx Confirmed 08/20/24] MA Intake Smoking Status Smoking Status: Never smoker Past Medical History Past Medical History NEUROLOGIC: Positive Neurological Disorders and Cerebrovascular Accident (10 years ago); Negative Seizures CARDIAC: Positive Hypertension; Negative Cardiac Disorders, Congestive Heart Failure, Edema, Cellulitis or Varicose Veins RESPIRATORY: Negative Chronic Obstructive Pulmonary Disease (COPD), Asthma, Pneumonia, Tuberculosis or Sleep Apnea GASTROINTESTINAL: Positive Gastrointestinal Disorders and Hemorrhoids; Negative Hepatitis GENITOURINARY: Negative Genitourinary Disorders or Renal Disease REPRODUCTIVE: Positive Breast Cancer and Previous Pregnancies MUSCULOSKELETAL: Positive Arthritis ENDOCRINE: Negative Endocrine Disorders, Diabetes Mellitus Type 1, Diabetes Mellitus Type 2, Hyperthyroidism or Hypothyroidism HEMATOLOGIC: Negative Blood Disorders, Anemia or Sickle Cell Disease PSYCHO/SOCIAL: Positive Depression and Anxiety OTHER HISTORY: Positive Hospitalization, Falls, Cancer (left nipple) and Breast Cancer; Negative Shingles, Blood Transfusions, Anesthesia Reactions, Chemotherapy, Radiation Therapy, MRSA, Chicken Pox, Measles or Mumps Family History FAMILY HISTORY: Positive Family Cardiac Disorders; Negative Family Psychiatric Problems, Family Respiratory Disorders, Family Gastrointestinal Problems, Family Cancer, Family Surgery or Family Anesthesia Reaction Surgical History SURGICAL: Positive Lumpectomy, Hysterectomy and Tubal Ligation; Negative Pacemaker Social History SMOKING STATUS: Smoking status: Never smoker ALCOHOL: Alcohol Intake: Never HOUSING: Housing: House LIVES WITH: Lives With: Family Patient Portal Questionaires PHQ-9 PHQ-2 Over the last 2 weeks, how often have you been bothered by any of the following problems? 1. Little interest or pleasure in doing things: not at all PHQ-9 3. Trouble falling or staying asleep, or sleeping too much: Not at all 4. Feeling tired or having little energy: Not at all 5. Poor appetite or overeating: Not at all 6. Feeling bad about yourself - or that you are a failure or have let yourself or your family down: Not at all 7. Trouble concentrating on things, such as reading the newspaper or watching television: Not at all 8. Moving or speaking so slowly that other people could have noticed? - Or the opposite - being so fidgety or restless that you have been moving around a lot more than usual: not at all Total score: 0 If you checked off any problems, how difficult have these problems made it for you to do your work, take care of things at home, or get along with other people?: not difficult at all Source: Developed by Drs. Dean Lozada, Noemi Evans, Carlitos Krause and colleagues, with an educational jasmyne from [employer]. Social History Living Situation History Lives With: Family Housing: House Tobacco History Smoking Status: Never smoker Alcohol History Alcohol Intake: Never Review of Systems Report any current symptoms Only answer those that you have currently: Past Medical History Past Medical History Have you ever been diagnosed with any of the following: Neurological Problems Cerebrovascular Accident (CVA): Yes (10 years ago) Seizures: No Cardiology Problems Congestive Heart Failure: No Edema: No Cellulitis: No Hypertension: Yes Varicose Veins: No Respiratory Problems Chronic Obstructive Pulmonary Disease (COPD): No Asthma: No Pneumonia: No Tuberculosis: No Sleep Apnea: No Stomache/Intestinal Problems Hepatitis: No Hemorrhoids: Yes Genital/Urinary Problems Renal Disease: No Reproductive Problems Breast Cancer: Yes Previous Pregnancies: Yes Musculoskeletal Problems Arthritis: Yes Endocrine Problems Diabetes Mellitus Type 1: No Diabetes Mellitus Type 2: No Hyperthyroidism: No Hypothyroidism: No Blood Problems Anemia: No Sickle Cell Disease: No Psychologic Problems Depression: Yes Anxiety: Yes Other Problems Hospitalization: Yes Shingles: No Falls: Yes Blood Transfusions: No Anesthesia Reactions: No Chemotherapy: No Radiation Therapy: No MRSA: No Chicken Pox: No Measles: No Mumps: No Cancer: Yes (left nipple) Surgical History Hysterectomy: Yes Pacemaker: No Assessment & Plan Diagnosis / Problem List Orders: Orders CBC 90 Days Comprehensive Metabolic Panel 90 Days Office Procedures [facility] Level of Care Nursing/Assessment Patient Status: Established Patient Nursing Assessment/Reassessment: Medication Reconciliation, Update PMH in EMR and Vital Signs Coordination of Care: Complex Care and Chronic Disease 1-5, Consent,records obtained, informed consent, Education Simp Pt/Fam and Staff clarify orders Established Patient Charge Established Patient Point Assignment: 85 Established Patient Point Charge: EP Level 3 (80-115)
== END 2024-08-20 14:22 | disposition home or self-care (01) ==
LOC: HODAHC 13:57
PROVIDERS: Supervising Provider Internal Medicine; Visit Provider Student in an Organized Health Care Education/Training Program
DX: Z09 Encounter for follow-up examination after completed treatment for conditions other than malignant neoplasm (principal); Z86.000 Personal history of in-situ neoplasm of breast; Z92.3 Personal history of irradiation; Z90.12 Acquired absence of left breast and nipple; I11.0 Hypertensive heart disease with heart failure; I50.9 Heart failure, unspecified; F41.1 Generalized anxiety disorder; Z76.0 Encounter for issue of repeat prescription
CPT/HCPCS: 99213; G0463

== ENCOUNTER → 2024-08-25 | Outpatient (CLI) | payer MEDICARE, MEDICAID, SELFPAY | END | disposition home or self-care (01) | LOC: SWHD 12:48 | PROVIDERS: PCP Student in an Organized Health Care Education/Training Program; Referring Provider Student in an Organized Health Care Education/Training Program; Visit Provider Student in an Organized Health Care Education/Training Program | DX: L89.612 Pressure ulcer of right heel, stage 2 (principal); L89.313 Pressure ulcer of right buttock, stage 3; F41.9 Anxiety disorder, unspecified; F32.9 Major depressive disorder, single episode, unspecified; I10 Essential (primary) hypertension; Z85.3 Personal history of malignant neoplasm of breast; G62.9 Polyneuropathy, unspecified | CPT/HCPCS: 17250 ==

== ENCOUNTER → 2024-09-07 | Outpatient (CLI) | payer MEDICARE, MEDICAID, SELFPAY ==
--- NOTE | 2024-09-07 15:24 | XR_ITS ---
Examination: Lumbar spine, 5 views Technique: Lumbar spine AP, lateral, coned lateral lower lumbar spine, bilateral obliques 5 views Exam date and time: September 07, 2024 at 1558 hours INDICATIONS: Low back pain 20 years FINDINGS: Severe lumbar levoscoliosis Transpedicular lumbar stabilization L4-L5 No acute lumbar fracture Advanced diffuse lumbar degenerative disc disease Moderate lumbar spondylosis IMPRESSION: Advanced diffuse lumbar degenerative disc disease
--- NOTE | 2024-09-07 15:24 | XR_ITS ---
Examination: AP lateral chest 2 views TECHNIQUE: Supine AP lateral chest 2 views Date and time: September 07, 2024 at 1557 hours Comparison July 13, 2024 INDICATIONS: Hypertension history. FINDINGS: Mild enlargement left ventricle Prominent left mediastinum Mild pulmonary vascular redistribution. No lumbar pneumonia or pulmonary edema Left axillary surgical clips Old deformity left clavicle: Prominent osteopenia IMPRESSION: Abnormally prominent left mediastinum, recommend CT chest post intravenous contrast follow-up
== END | disposition home or self-care (01) ==
PROVIDERS: PCP Internal Medicine; Referring Provider Internal Medicine; Visit Provider Internal Medicine
DX: M51.360 Other intervertebral disc degeneration, lumbar region with discogenic back pain only (principal); I10 Essential (primary) hypertension; E11.9 Type 2 diabetes mellitus without complications
CPT/HCPCS: 71046; 72110

== ENCOUNTER → 2024-09-08 | Outpatient (CLI) | payer MEDICARE, MEDICAID, SELFPAY ==
[2024-09-08 15:55] LABS: Basophils % (Auto) 1 % (0-2.5); Eosinophils # (Auto) 0.1 Thou/mm3 (0.0-0.5); Eosinophils % (Auto) 2 % (0-10); Hematocrit 35.6 % (36.0-46.0); Hemoglobin 11.5 g/dL (12.0-16.0); Immature Granulocytes % (Auto) 0 % (0-0); Immature Granulocytes Auto 0.02 Thou/mm3 (0.00-0.00); Lymphocytes # (Auto) 1.9 Thou/mm3 (1.0-4.8); Lymphocytes % (Auto) 33 % (10-50); Mean Corpuscular HGB Conc 32.3 g/dl (31.0-37.0); Mean Corpuscular Hemoglobin 28.8 pg (25.0-35.0); Mean Corpuscular Volume 89 fL (80-100); Monocytes # (Auto) 0.4 Thou/mm3 (0.0-0.8); Monocytes % (Auto) 6 % (0-12); Neutrophils # (Auto) 3.4 Thou/mm3 (1.8-7.7); Neutrophils % (Auto) 58 % (37-80); Nucleated Red Blood Cell % 0 /100 WBC (0); Platelet Count 145 Thou/mm3 (140-440); RDW Standard Deviation 51.6 fL (36.4-46.3); Red Blood Count 3.99 Miln/mm3 (4.00-5.20); White Blood Count 5.8 Thou/mm3 (3.6-11.0)
[2024-09-08 16:15] LABS: Partial Thromboplastin Time 29.8 Seconds (22.0-36.0); Prothrombin Time 11.2 Seconds (9.0-12.2)
[2024-09-08 16:26] LABS: Glucose Estimated Average 111 mg/dL (80-131); Hemoglobin A1C 5.5 % Hgb (4.8-6.0)
[2024-09-08 16:44] LABS: Free T4 (Free Thyroxine) 0.84 ng/dL (0.89-1.76)
== END | disposition home or self-care (01) ==
PROVIDERS: PCP Internal Medicine; Referring Provider Internal Medicine; Visit Provider Internal Medicine
DX: I11.0 Hypertensive heart disease with heart failure (principal); E11.9 Type 2 diabetes mellitus without complications; E55.9 Vitamin D deficiency, unspecified; E78.2 Mixed hyperlipidemia; E03.9 Hypothyroidism, unspecified
CPT/HCPCS: 36415; 80053; 80061; 83036; 84439; 84443; 85025; 85610; 85730

== ENCOUNTER → 2024-09-08 | Outpatient (CLI) | payer MEDICARE, MEDICAID, SELFPAY | END | disposition home or self-care (01) | PROVIDERS: PCP Student in an Organized Health Care Education/Training Program; Referring Provider Student in an Organized Health Care Education/Training Program; Visit Provider Student in an Organized Health Care Education/Training Program | DX: L89.613 Pressure ulcer of right heel, stage 3 (principal); F41.9 Anxiety disorder, unspecified; F32.A Depression, unspecified; I10 Essential (primary) hypertension; Z85.3 Personal history of malignant neoplasm of breast; G62.9 Polyneuropathy, unspecified | CPT/HCPCS: 17250; 36415; 83036; 84439; 84443; 85025; 85610; 85730; A9270 ==

== ENCOUNTER → 2024-09-09 | Outpatient (CLI) | payer MEDICARE, MEDICAID, SELFPAY ==
[2024-09-09 13:42] LABS: Alanine Aminotransferase 8 U/L (10-49); Albumin, Serum 4.3 gm/dL (3.4-4.8); Albumin/Globulin Ratio 2.2 (1.2-2.2); Alkaline Phosphatase 90 U/L (46-116); Anion Gap 7 (7-16); Aspartate Amino Transferase 14 U/L (0-34); BUN/Creatinine Ratio 17 Ratio (12-20); Bilirubin,Total 0.4 mg/dL (0.3-1.2); Blood Urea Nitrogen 15 mg/dL (9-23); Carbon Dioxide 29.4 mMol/L (20.0-31.0); Cardiac Risk Estimate 4.8 RATIO (3.7-5.6); Chloride 108 mMol/L (98-107); Cholesterol 172 mg/dL (132-200); Creatinine (Component) 0.9 mg/dL (0.6-1.3); Glucose 110 mg/dL (74-106); HDL Cholesterol 36 mg/dL (40-60); LDL Cholesterol,Calculated 97 mg/dL (0-130); Osmolality,Calculated 288 (275-295); Sodium 144 mMol/L (136-145); Total Protein 6.3 gm/dL (5.7-8.2); Triglycerides 195 mg/dL (30-150); eGFR > 60 See Note
== END | disposition home or self-care (01) ==
LOC: COPL 12:10
PROVIDERS: PCP Internal Medicine; Referring Provider Internal Medicine; Visit Provider Internal Medicine
DX: I11.0 Hypertensive heart disease with heart failure (principal); E78.2 Mixed hyperlipidemia
CPT/HCPCS: 36415; 80053; 80061

== ENCOUNTER → 2024-09-30 | Outpatient (CLI) | payer MEDICARE, MEDICAID, SELFPAY | END | disposition home or self-care (01) | LOC: SWHD 13:32 | PROVIDERS: PCP Student in an Organized Health Care Education/Training Program; Referring Provider Student in an Organized Health Care Education/Training Program; Visit Provider Student in an Organized Health Care Education/Training Program | DX: L89.613 Pressure ulcer of right heel, stage 3 (principal); L89.312 Pressure ulcer of right buttock, stage 2; F41.9 Anxiety disorder, unspecified; F32.A Depression, unspecified; I10 Essential (primary) hypertension; Z85.3 Personal history of malignant neoplasm of breast; G62.9 Polyneuropathy, unspecified | CPT/HCPCS: 97597; A9270 ==

== ENCOUNTER → 2024-10-06 | Outpatient (CLI) | payer MEDICARE, MEDICAID, SELFPAY | END | disposition home or self-care (01) | LOC: SWHD 14:47 | PROVIDERS: PCP Student in an Organized Health Care Education/Training Program; Referring Provider Student in an Organized Health Care Education/Training Program; Visit Provider Student in an Organized Health Care Education/Training Program | DX: L89.613 Pressure ulcer of right heel, stage 3 (principal); G62.9 Polyneuropathy, unspecified; I10 Essential (primary) hypertension; F32.A Depression, unspecified; F41.9 Anxiety disorder, unspecified | CPT/HCPCS: 99213; A9270; G0463 ==

== ENCOUNTER → 2024-10-13 | Outpatient (CLI) | payer MEDICARE, MEDICAID, SELFPAY | END | disposition home or self-care (01) | LOC: SWHD 10:04 | PROVIDERS: PCP Student in an Organized Health Care Education/Training Program; Referring Provider Student in an Organized Health Care Education/Training Program; Visit Provider Student in an Organized Health Care Education/Training Program | DX: L89.613 Pressure ulcer of right heel, stage 3 (principal); L89.312 Pressure ulcer of right buttock, stage 2; S39.92XA Unspecified injury of lower back, initial encounter; X58.XXXA Exposure to other specified factors, initial encounter; G62.9 Polyneuropathy, unspecified; I10 Essential (primary) hypertension; F32.A Depression, unspecified; F41.9 Anxiety disorder, unspecified | CPT/HCPCS: 99214; A9270; G0463 ==

== ENCOUNTER → 2024-11-10 | Outpatient (CLI) | payer MEDICARE, MEDICAID, SELFPAY | END | disposition home or self-care (01) | PROVIDERS: PCP Student in an Organized Health Care Education/Training Program; Referring Provider Student in an Organized Health Care Education/Training Program; Visit Provider Student in an Organized Health Care Education/Training Program | DX: L89.613 Pressure ulcer of right heel, stage 3 (principal); L89.312 Pressure ulcer of right buttock, stage 2; S39.92XA Unspecified injury of lower back, initial encounter; X58.XXXA Exposure to other specified factors, initial encounter; G62.9 Polyneuropathy, unspecified; I10 Essential (primary) hypertension; F32.A Depression, unspecified; F41.9 Anxiety disorder, unspecified | CPT/HCPCS: 99214; G0463 ==

== ENCOUNTER → 2024-12-01 | Outpatient (CLI) | payer MEDICARE, MEDICAID, SELFPAY | END | disposition home or self-care (01) | LOC: SWHD 13:55 | PROVIDERS: PCP Student in an Organized Health Care Education/Training Program; Referring Provider Student in an Organized Health Care Education/Training Program; Visit Provider Surgery | DX: L98.411 Non-pressure chronic ulcer of buttock limited to breakdown of skin (principal); G62.9 Polyneuropathy, unspecified; I10 Essential (primary) hypertension; F32.A Depression, unspecified; F41.9 Anxiety disorder, unspecified | CPT/HCPCS: 99213; G0463 ==

== ENCOUNTER → 2024-12-08 | Outpatient (CLI) | payer MEDICARE, MEDICAID, SELFPAY | END | disposition home or self-care (01) | LOC: SWHD 12:50 | PROVIDERS: PCP Student in an Organized Health Care Education/Training Program; Referring Provider Student in an Organized Health Care Education/Training Program; Visit Provider Student in an Organized Health Care Education/Training Program | DX: L97.412 Non-pressure chronic ulcer of right heel and midfoot with fat layer exposed (principal); G62.9 Polyneuropathy, unspecified; I10 Essential (primary) hypertension; F32.A Depression, unspecified; F41.9 Anxiety disorder, unspecified | CPT/HCPCS: 99212; G0463 ==

== ENCOUNTER → 2024-12-14 | Outpatient (CLI) | payer MEDICARE, MEDICAID, SELFPAY | END | disposition home or self-care (01) | LOC: SWHD 14:03 | PROVIDERS: PCP Student in an Organized Health Care Education/Training Program; Referring Provider Student in an Organized Health Care Education/Training Program; Visit Provider Student in an Organized Health Care Education/Training Program | DX: L98.411 Non-pressure chronic ulcer of buttock limited to breakdown of skin (principal); G62.9 Polyneuropathy, unspecified; I10 Essential (primary) hypertension; F41.9 Anxiety disorder, unspecified; F32.A Depression, unspecified | CPT/HCPCS: 99212; A9270; G0463 ==

== ENCOUNTER → 2024-12-15 | Outpatient (CLI) | payer MEDICARE, MEDICAID, SELFPAY ==
--- NOTE | 2024-12-15 13:30 | XR_ITS ---
Examination: Breast ultrasound, unilateral, left complete Date and time of exam: December 15, 2024, 1424 hours COMPARISON: July 23, 2024 INDICATIONS: Diagnosis malignant neoplasm central portion left female breast, left retroareolar biopsy with Marker Jul 23 2024, left breast carcinoma diagnosis 11/17/2019 partial mastectomy, nodule retroareolar region left breast on left breast sonogram May 19, 2024 11 x 5 x 9 mm Technique: Real-time phoenix scale ultrasonographic imaging performed left breast including all 4 quadrants as well as nipple retroareolar and axillary region. Findings: Retroareolar nodule with breast biopsy marker 7 x 10 x 11 mm indistinct margins IMPRESSION: BI-RADS Category 3: Probably benign findings Recommend continued 6 month follow-up left breast sonography to document stability of retroareolar nodule described above
== END | disposition home or self-care (01) ==
LOC: CDIM 13:49
PROVIDERS: PCP Internal Medicine; Referring Provider Radiology Therapeutic Radiology; Visit Provider Radiology Therapeutic Radiology
DX: N63.42 Unspecified lump in left breast, subareolar (principal); C50.112 Malignant neoplasm of central portion of left female breast
CPT/HCPCS: 76641

== ENCOUNTER 2024-12-23 13:01 | Outpatient (RCR) | payer MEDICARE, MEDICAID, SELFPAY ==
--- NOTE | 2024-12-23 13:31 | CTCFLWUP_ITS ---
[facility] [address] [place], [place] [address] FOLLOW-UP NOTE Date: 12/23/2024 MR#: [id number] Name: NETO DENTON : 1940 Dx: C50.112 Malignant neoplasm of central portion of left female breast Identification. 84-year-old lady with history of stage II aT2a N0 left breast CA. Underwent partial mastectomy postoperation therapy completed March 2020. Patient received hormonal manipulation under medical oncologist Dr. Dang's direction. Bilateral ultrasound 05/19/2024 suspicious of malignancy left breast retroareolar area Ultrasound-guided biopsy 07/23/2024 inconclusive. Left breast ultrasound 12/15/2024 probably benign. Examined patient and saw the postop post radiation changes without any sign of recurrent tumor in the left breast. Shall see patient in 4 months and order ultrasound at that time. Electronically signed by: Chiki Underwood M.D. 12/23/2024 1:29 PM
== END 2025-01-15 23:59 | disposition home or self-care (01) ==
LOC: SCTC 13:01
PROVIDERS: PCP Internal Medicine; Referring Provider Student in an Organized Health Care Education/Training Program; Visit Provider Radiology Therapeutic Radiology
DX: Z08 Encounter for follow-up examination after completed treatment for malignant neoplasm (principal); Z85.3 Personal history of malignant neoplasm of breast; Z90.12 Acquired absence of left breast and nipple
CPT/HCPCS: 99213; G0463

== ENCOUNTER 2024-12-27 11:32 | Emergency (ER) | payer MEDICARE, MEDICAID, SELFPAY ==
--- NOTE | 2024-12-27 11:41 | EDNOTE_ITS ---
ED General RME/HPI General Chief complaint: General Adult/Misc Complain Stated complaint: HIGH BP Time Seen by Provider: 12/27/24 11:33 Arrival date/time: 12/27/24 11:32 CC: Hypertension HPI patient presents to the ER via EMS who report patient is hypertensive 190/100. Patient denies any complaints including chest pain fever chills nausea vomiting shortness of breath difficulty breathing swollen ankles or coughing up blood. Patient's family wanted the patient checked out . Past medical history includes breast cancer with chest cellulitis related to the cancerous region. Related Data Home Medications ?Medication ?Instructions ?Recorded ?Confirmed sertraline 100 mg tablet 100 mg PO DAILY 06/11/2208/09 rivastigmine 4.6 mg/24 hour 4.6 mg topical QDAY 08/20/24 transdermal patch Previous Rx's ?Medication ?Instructions ?Recorded guaifenesin 100 mg/5 mL oral liquid 200 mg (10 mL) PO BIDWMEAL #500 mL 01/30/24 albuterol sulfate 90 mcg/actuation 1 puff inhalation Q 8H PRN 03/19/24 aerosol inhaler shortness of breath or wheez ing #8.5 grams amlodipine 10 mg tablet 10 mg PO QDAY 30 days #30 ta bs 03/19/24 cetirizine 10 mg tablet (Zyrtec) 10 mg PO QDAY PRN all ergy symptoms 04/30/24 #30 tabs dexlansoprazole 60 mg 60 mg PO DAILY 30 days #30 c aps 04/30/24 capsule,biphase delayed release lidocaine 5 % topical cream 1 applic topical TID PRN p ain #15 04/30/24 grams rivaroxaban 10 mg tablet (Xarelto) 10 mg PO DAILY 30 d ays #30 tabs 04/30/24 Held on 05/25/24. Instructions: Doctor's Order clotrimazole 1 % topical cream 1 applic topical TID TN N rash in 05/25/24 groin #45 grams menthol 5 % topical patch 1 patch topical TID-QID PRN pain 05/25/24 (Biofreeze (menthol)) #4 ea levofloxacin 750 mg tablet 750 mg PO QDAY #7 tabs 06/16 calcium 600 mg (as 1 tab PO BID 30 days #60 tab s 07/21/24 carbonate)-vitamin D3 10 mcg (400 unit) tablet ibandronate 150 mg tablet 150 mg PO QMONTH osteoporosi s #1 07/21/24 tab furosemide 40 mg tablet 40 mg PO DAILY #30 tabs 05/12 gabapentin 300 mg capsule 300 mg PO BID neuropathy #60 caps 08/17/24 alprazolam 0.5 mg tablet 0.5 mg PO TID Anxiety #90 ta bs 08/20/24 lisinopril 40 mg tablet 40 mg PO QDAY 1 month #30 ta bs 08/20/24 amoxicillin 500 mg capsule 2,000 mg (4 x 500 mg) PO QD AY 08/25/24 dental prophylaxis #4 caps amlodipine 10 mg tablet 10 mg PO QDAY #30 tabs 12/27 Allergies Allergy/AdvReac Type Severity Reaction Status Date / Time No Known Allergies Allergy Verified 12/27/24 11:58 Review of Systems Review of Systems Narrative Review of Systems: GEN: No fever, no chills, no weight loss EYES: No discharge, no visual changes, no pain HEENT: No ear pain, no congestion, no sore throat PULM: No shortness of breath, no cough, no congestion CV: No chest pain, no dyspnea on exertion, no palpitations GI: No nausea, no vomiting, no diarrhea, no pain, no constipation : No frequency, no urgency, no dysuria MUSC/SKEL: No joint pain, no back pain SKIN: No rash PSYCH: No hallucinations, no depression HEME/LYMPH: No easy bleeding or bruising tendencies NEURO: No weakness, no headache Past Medical History Past Medical History NEUROLOGIC: Positive Neurological Disorders and Cerebrovascular Accident (10 years ago); Negative Seizures CARDIAC: Positive Hypertension; Negative Cardiac Disorders, Congestive Heart Failure, Edema, Cellulitis or Varicose Veins RESPIRATORY: Negative Chronic Obstructive Pulmonary Disease (COPD), Asthma, Pneumonia, Tuberculosis or Sleep Apnea GASTROINTESTINAL: Positive Gastrointestinal Disorders and Hemorrhoids; Negative Hepatitis GENITOURINARY: Negative Genitourinary Disorders or Renal Disease REPRODUCTIVE: Positive Breast Cancer and Previous Pregnancies MUSCULOSKELETAL: Positive Musculoskeletal Disorders and Arthritis ENDOCRINE: Negative Endocrine Disorders, Diabetes Mellitus Type 1, Diabetes Mellitus Type 2, Hyperthyroidism or Hypothyroidism HEMATOLOGIC: Negative Blood Disorders, Anemia or Sickle Cell Disease PSYCHO/SOCIAL: Positive Depression and Anxiety OTHER HISTORY: Positive Hospitalization, Falls, Cancer (left nipple) and Breast Cancer; Negative Autoimmune Disease, Shingles, Blood Transfusions, Anesthesia Reactions, Chemotherapy, Radiation Therapy, MRSA, Chicken Pox, Measles or Mumps Family History FAMILY HISTORY: Positive Family Cardiac Disorders; Negative Family Psychiatric Problems, Family Respiratory Disorders, Family Gastrointestinal Problems, Family Cancer, Family Surgery or Family Anesthesia Reaction Surgical History SURGICAL: Positive Lumpectomy, Hysterectomy and Tubal Ligation; Negative Pacemaker Social History SMOKING STATUS: Never smoker ED Exam Narrative Physical exam: [General: Not in any acute distress Head normocephalic HEENT: Within acceptable limits Neck is supple nontender Chest equal chest rise nontender to palpation Respiratory: Clear to auscultation no wheezes crackles or rubs CV: Rate rhythm is regular no murmurs rubs or clicks Abdomen is soft nontender no masses positive bowel sounds all 4 quadrants Back: No CVA tenderness no spinous process tenderness from cervical spine thoracic and lumbar spine Skin: Intact no petechiae rash induration ulceration or crepitus Extremities: Moving all extremity against resistance cap refill less than 2 seconds neurosensory intact. No lower extremity edema. Neuro: Awake alert oriented x2, person and place, Glascow coma 15 no focal deficits] Course Course Course Narrative: At 1549 was determined by family members that the patient has been off her antihypertensive medications for the past 3 months per her PCP at this time we will restart her on her meds. She has no sign of endorgan damage. And no specific complaints. Quality Measures none Orders Category Date Time Status CBC Stat Lab 12/27/24 13:17 Completed CMP [Comprehensive Metabolic Panel] Stat Lab 12/27/24 13:17 Completed Urinalysis, C/S if Indicated Stat Lab 12/27/24 16:00 Completed amLODIPine BESYLATE [Norvasc] Med 12/27/24 15:49 Discontinued 10 mg PO X1 ONE cloNIDine HCL [Catapres] Med 12/27/24 14:06 Discontinued 0.1 mg PO X1 ONE hydrALAZINE INJ [Apresoline Inj] Med 12/27/24 12:28 Discontinued 10 mg IVP X1 ONE Vital Signs Vital signs: Vital Signs Pulse Rate 56 L 12/27/24 12:53 Blood Pressure 212/66 H 12/27/24 12:53 Discharge Plan Plan Patient Disposition: HOME (Self Care) Patient condition on transfer: Stable Prescriptions/Referrals Prescriptions/Med Rec: New amlodipine 10 mg tablet 10 mg PO QDAY Qty: 30 1RF No Action guaifenesin 100 mg/5 mL liquid 200 mg PO BIDWMEAL Qty: 500 0RF amlodipine 10 mg tablet 10 mg PO QDAY 30 Days Qty: 30 3RF albuterol sulfate 90 mcg/actuation HFA aerosol inhaler 1 puff inhalation Q8H PRN (Reason: shortness of breath or wheezing) Qty: 8.5 0RF levofloxacin 750 mg tablet 750 mg PO QDAY Qty: 7 0RF dexlansoprazole 60 mg capsule,biphase delayed releas 60 mg PO DAILY 30 Days Qty: 30 2RF lidocaine 5 % cream 1 applic topical TID PRN (Reason: pain) Qty: 15 0RF cetirizine [Zyrtec] 10 mg tablet 10 mg PO QDAY PRN (Reason: allergy symptoms) Qty: 30 0RF Xarelto 10 mg tablet 10 mg PO DAILY 30 Days Qty: 30 3RF clotrimazole 1 % cream 1 applic topical TID PRN (Reason: rash in groin) Qty: 45 5RF Biofreeze (menthol) 5 % adhesive patch,medicated 1 patch topical TID-QID PRN (Reason: pain) Qty: 4 0RF ibandronate 150 mg tablet 150 mg PO QMONTH Qty: 1 3RF calcium carbonate-vitamin D3 600 mg-10 mcg (400 unit) tablet 1 tab PO BID 30 Days Qty: 60 2RF lisinopril 40 mg tablet 40 mg PO QDAY 30 Days Qty: 30 3RF alprazolam 0.5 mg tablet 0.5 mg PO TID MDD 1.5 mg Qty: 90 0RF furosemide 40 mg tablet 40 mg PO DAILY Qty: 30 3RF gabapentin 300 mg capsule 300 mg PO BID MDD 600 mg Qty: 60 3RF amoxicillin 500 mg capsule 2,000 mg PO QDAY MDD 2000 mg Qty: 4 0RF Rx Instructions: take 1 hour prior to dental work rivastigmine 4.6 mg/24 hour patch 24 hour 4.6 mg TOPICAL QDAY sertraline 100 mg tablet 100 mg PO DAILY Patient Comments: take 1 tablet by mouth once daily Referrals: Bernard Shaw MD [Physician, Family Practice] - In 1 week No Primary/Family,Physician [Primary Care Provider] - In 1 week Problem List Clinical Impression: Hypertension Patient/Caregiver Discharge Instructions Other Activity Instructions:: Please restart the amlodipine 10 mg once a day, and follow-up promptly with your primary care doctor for continuation of hypertension management. Education Materials: Controlling High Blood Pressure Print Language: German Stand Alone Forms: Reema Award Info., Work/School Release, Patient Portal Info Letter MARIAM/MIRIAM Supervising Physician MARIAM/MIRIAM Supervising Physician: Rosendo Shetty ENP MDM Clinical Information Provided by: patient and EMS Medical [facility] Chronic Illness/Social Conditions which may negatively complicate care or outcome(s)-explain: Cancer Explain: Hypertension Medication Administration(s) Medication Administration History Discontinued Medications Amlodipine Besylate (Amlodipine Besylate 5 Mg Tablet) 10 mg PO X1 ONE Stop: 12/27/24 15:50 Last Admin: 12/27/24 16:07 Dose: 10 mg Documented By: OSVALDO Clonidine (Clonidine Hcl 0.1 Mg Tablet) 0.1 mg PO X1 ONE Stop: 12/27/24 14:07 Last Admin: 12/27/24 15:00 Dose: 0.1 mg Documented By: MADELINE Comments: [employer] MADE AWARE OF PT'S VS BEFORE GIVING MED; PER [employer], OK TO GIVE THIS MED TO PT AT THIS TIME. Hydralazine HCl (Hydralazine Inj 20 Mg/Ml Vial) 10 mg IVP X1 ONE Stop: 12/27/24 12:29 Last Admin: 12/27/24 12:53 Dose: 10 mg Documented By: OSVALDO
[2024-12-27 11:55] VITALS: BMI 27.3
[2024-12-27 12:53] VITALS: BP 212/66; PULSE 56
[2024-12-27] MEDS: hydrALAZINE INJ 20 MG/ML VIAL 10 MG IVP (12:53)
[2024-12-27 13:38] LABS: Basophils # (Auto) 0.0 Thou/mm3 (0.0-0.2); Basophils % (Auto) 1 % (0-2.5); Eosinophils # (Auto) 0.2 Thou/mm3 (0.0-0.5); Eosinophils % (Auto) 3 % (0-10); Hematocrit 39.0 % (36.0-46.0); Hemoglobin 12.7 g/dL (12.0-16.0); Immature Granulocytes Auto 0.04 Thou/mm3 (0.00-0.00); Lymphocytes # (Auto) 1.4 Thou/mm3 (1.0-4.8); Lymphocytes % (Auto) 26 % (10-50); Mean Corpuscular HGB Conc 32.6 g/dl (31.0-37.0); Mean Corpuscular Hemoglobin 29.7 pg (25.0-35.0); Mean Corpuscular Volume 91 fL (80-100); Monocytes # (Auto) 0.3 Thou/mm3 (0.0-0.8); Monocytes % (Auto) 6 % (0-12); Neutrophils # (Auto) 3.5 Thou/mm3 (1.8-7.7); Neutrophils % (Auto) 64 % (37-80); Nucleated Red Blood Cell # 0.00 Thou/mm3 (0.00-0.00); Nucleated Red Blood Cell % 0 /100 WBC (0); Platelet Count 112 Thou/mm3 (140-440); RDW Standard Deviation 47.7 fL (36.4-46.3); Red Blood Count 4.28 Miln/mm3 (4.00-5.20); White Blood Count 5.5 Thou/mm3 (3.6-11.0)
[2024-12-27 13:55] LABS: Alanine Aminotransferase < 7 U/L (10-49); Albumin, Serum 4.2 gm/dL (3.4-4.8); Albumin/Globulin Ratio 1.8 (1.2-2.2); Alkaline Phosphatase 111 U/L (46-116); Anion Gap 10 (7-16); Aspartate Amino Transferase 14 U/L (0-34); BUN/Creatinine Ratio 13 Ratio (12-20); Bilirubin,Total 0.4 mg/dL (0.3-1.2); Blood Urea Nitrogen 9 mg/dL (9-23); Calcium 9.0 mg/dL (8.3-10.6); Calcium (Corrected) 9.0 mg/dL (8.5-10.1); Carbon Dioxide 25.6 mMol/L (20.0-31.0); Chloride 108 mMol/L (98-107); Creatinine (Component) 0.7 mg/dL (0.6-1.3); Estimated Creatinine Clearance 59.3 mL/min (>60); Globulin 2.3 gm/dL (2.3-3.5); Glucose 105 mg/dL (74-106); Osmolality,Calculated 285 (275-295); Potassium 4.2 mMol/L (3.4-5.1); Sodium 144 mMol/L (136-145); Total Protein 6.5 gm/dL (5.7-8.2); eGFR > 60 See Note
[2024-12-27 14:58] VITALS: BP 183/57; PULSE 54; RESP 17; TEMP 36.8; O2SAT 98
[2024-12-27 15:00] VITALS: BP 194/59; PULSE 52
[2024-12-27 16:07] VITALS: BP 172/68; PULSE 53
[2024-12-27 16:08] LABS: Collection Type, Urine Clean Catch
[2024-12-27 16:13] LABS: Bilirubin,Urine Negative (Negative); Blood,Urine Negative (Negative); Clarity,Urine Clear (Clear/Hazy); Color,Urine Lt-Yellow (Lt Yel-Yel); Culture Indicated,Urine Not Indicated; Glucose, Urine Negative (Negative); Ketones,Urine Negative (Negative); Leukocyte Esterase,Urine Negative (Negative); Nitrite,Urine Negative (Negative); PH,Urine 7.0 (5.0-7.0); Protein,Urine 1+ (Neg - Trace); RBC,Urine 1 /hpf (0-3); Specific Gravity,Urine 1.019 (1.001-1.035); Squamous Epithelial Cell,Urine < 1 /hpf (0-5); Urobilinogen,Urine Negative mg/dL (0.0-1.0); WBC,Urine < 1 /hpf (0-5)
== END 2024-12-27 16:30 | disposition home or self-care (01) ==
PROVIDERS: Registered Nurse General Practice; Emergency Provider Family Medicine
DX: I10 Essential (primary) hypertension (principal); Z79.01 Long term (current) use of anticoagulants
CPT/HCPCS: 36415; 80053; 81001; 85025; 96374; 99283; J0360; A9270

== ENCOUNTER → 2024-12-28 | Outpatient (CLI) | payer MEDICARE, MEDICAID, SELFPAY | END | disposition home or self-care (01) | LOC: SWHD 14:00 | PROVIDERS: PCP Student in an Organized Health Care Education/Training Program; Referring Provider Student in an Organized Health Care Education/Training Program; Visit Provider Surgery | DX: L98.412 Non-pressure chronic ulcer of buttock with fat layer exposed (principal); G62.9 Polyneuropathy, unspecified; I10 Essential (primary) hypertension; F41.9 Anxiety disorder, unspecified; F32.A Depression, unspecified | CPT/HCPCS: 99212; G0463 ==